=== PATIENT | female | born 1950 | race Caucasian/White ===

== ENCOUNTER → 2016-07-12 | Outpatient (CLI) | payer OTHER ==
[~2016-07-12] MED LIST: /AMLO25TA PO; AMLO5TAB2 PO; ASPI325T PO; JANU50TA4 PO; METF1000 PO; METO-207 PO; NEXI20CA PO; NEXI40GR PO; QUIN40TA4 PO; QUIN40TA5 PO; SIMV20TA2 PO; TYLE325T5 PO
[2016-07-12 08:31] LABS: ALBUMIN 4.1 GM/DL (3.2-5.2); ALBUMIN/GLOBULIN RATIO 1.37 (1.00-1.93); ALKALINE PHOSPHATASE 92 U/L (45-117); ALT/SGPT 63 U/L (12-78); ANION GAP 11 MEQ/L (8-16); AST/SGOT 32 U/L (15-37); BILIRUBIN,TOTAL 0.4 MG/DL (0.2-1.0); BLOOD UREA NITROGEN 16 MG/DL (7-18); CALCIUM LEVEL 8.5 MG/DL (8.8-10.2); CARBON DIOXIDE LEVEL 27 MEQ/L (21-32); CHLORIDE LEVEL 105 MEQ/L (98-107); CHOLESTEROL LEVEL 164 MG/DL (<200); CREATININE FOR GFR 0.61 MG/DL (0.55-1.02); GLOMERULAR FILTRATION RATE > 60.0 (>45); GLUCOSE, FASTING 147 MG/DL (80-110); POTASSIUM SERUM 4.4 MEQ/L (3.5-5.1); SODIUM LEVEL 143 MEQ/L (136-145); TOTAL PROTEIN 7.1 GM/DL (6.4-8.2); TRIGLYCERIDES LEVEL 191 MG/DL (<150)
== END ==
LOC: M LAB 07:23
PROVIDERS: ATTEND Internal Medicine
DX: E78.5 Hyperlipidemia, unspecified (principal); I10 Essential (primary) hypertension; I48.91 Unspecified atrial fibrillation; E11.9 Type 2 diabetes mellitus without complications

== ENCOUNTER → 2016-07-12 | Outpatient (CLI) | payer OTHER ==
[2016-07-12 08:40] LABS: MAGNESIUM LEVEL 1.8 MG/DL (1.8-2.4)
== END ==
LOC: M LAB 07:25
PROVIDERS: ATTEND Internal Medicine Cardiovascular Disease
DX: I48.91 Unspecified atrial fibrillation (principal)

== ENCOUNTER → 2016-11-08 | Outpatient (CLI) | payer OTHER ==
[~2016-11-08] MED LIST changes: -METF1000 PO; +METF10004 PO; -METO-207 PO; +METO1TAB7 PO; +QUIN1TAB15 PO; -QUIN40TA5 PO
[2016-11-08 12:51] LABS: MEAN CORPUSCULAR HEMOGLOBIN 31.2 pg (27.0-33.0); MEAN CORPUSCULAR HGB CONC 33.9 g/dl (32.0-36.5); MEAN CORPUSCULAR VOLUME 91.9 fl (80.0-96.0); RED CELL DISTRIBUTION WIDTH 12.2 % (11.5-14.5); WHITE BLOOD COUNT 6.9 K/mm3 (4.0-10.0)
[2016-11-08 12:52] LABS: ANION GAP 6 MEQ/L (8-16); BLOOD UREA NITROGEN 11 MG/DL (7-18); CALCIUM LEVEL 9.4 MG/DL (8.8-10.2); CARBON DIOXIDE LEVEL 29 MEQ/L (21-32); CHLORIDE LEVEL 106 MEQ/L (98-107); CREATININE FOR GFR 0.67 MG/DL (0.55-1.02); GLOMERULAR FILTRATION RATE > 60.0 (>45); GLUCOSE, FASTING 132 MG/DL (80-110); POTASSIUM SERUM 4.5 MEQ/L (3.5-5.1); SODIUM LEVEL 141 MEQ/L (136-145)
== END ==
LOC: M WUC 09:01
PROVIDERS: ATTEND Internal Medicine Cardiovascular Disease
DX: I48.91 Unspecified atrial fibrillation (principal)

== ENCOUNTER → 2017-01-20 | Outpatient (CLI) | payer OTHER ==
--- NOTE | 2017-01-22 17:48 | SLEEPCENT ---
DATE OF PROCEDURE: 01/20/2017 REFERRING PHYSICIAN: Cammy Espinoza Nocturnal polysomnography was performed for evaluation of sleep physiology in this patient with a history of excessive somnolence and nonrestorative sleep. 8 hours and 3 minutes of data were reviewed. There were 395 minutes of sleep identified. Sleep latency was prolonged at 52 minutes. Rapid eye movement (REM) latency was quite prolonged at 171 minutes. Indeed, REM sleep was not achieved until interventions were made. The patient's sleep architecture initially severely fragmented, improved after intervention. Overall sleep efficiency was 82.6%. EKG showed a sinus rhythm with an average heart rate of 75 beats per minute. Respiratory variability was seen with a rate of 65 to 82. EEG showed reasonably normal waveforms for awake and sleep. There were 102 respiratory events identified of 10 seconds in duration or greater for an apnea/hypopnea index of 15.5. The events were associated with oxygen desaturations into the 80s. Having clearly established the presence of obstructive sleep apnea syndrome early in the test, the study was stopped before midnight for the application of pressure therapy. The patient was fit with a ResMed AirFit F20 full face mask of medium size, 4 cm of water pressure were applied to the circuit and the lights were then extinguished. Throughout the remaining hours of testing, pressure titration was performed to an optimal pressure of +7 with which the patient's slept through REM without respiratory event or oxygen desaturation. Some limb activity identified early in the study resolved with the application of pressure therapy as well. IMPRESSION: Obstructive sleep apnea syndrome (G47.33). RECOMMENDATION: Nightly use of pressure therapy, 7 cm of water.
== END ==
LOC: M SLEEP 19:45
PROVIDERS: ATTEND Nurse Practitioner Adult Health
DX: G47.33 Obstructive sleep apnea (adult) (pediatric) (principal)

== ENCOUNTER → 2017-02-06 | Outpatient (REF) | payer OTHER ==
[2017-02-06 11:50] LABS: MEAN CORPUSCULAR HEMOGLOBIN 30.5 pg (27.0-33.0); MEAN CORPUSCULAR HGB CONC 32.9 g/dl (32.0-36.5); MEAN CORPUSCULAR VOLUME 92.7 fl (80.0-96.0); RED CELL DISTRIBUTION WIDTH 11.4 % (11.5-14.5)
[2017-02-06 12:18] LABS: ALBUMIN/GLOBULIN RATIO 1.25 (1.00-1.93); ALKALINE PHOSPHATASE 79 U/L (45-117); ALT/SGPT 49 U/L (12-78); ANION GAP 10 MEQ/L (8-16); AST/SGOT 21 U/L (15-37); BILIRUBIN,TOTAL 0.3 MG/DL (0.2-1.0); BLOOD UREA NITROGEN 14 MG/DL (7-18); CALCIUM LEVEL 8.9 MG/DL (8.8-10.2); CARBON DIOXIDE LEVEL 26 MEQ/L (21-32); CHLORIDE LEVEL 104 MEQ/L (98-107); CREATININE FOR GFR 0.53 MG/DL (0.55-1.02); GLOMERULAR FILTRATION RATE > 60.0 (>45); GLUCOSE, FASTING 131 MG/DL (80-110); POTASSIUM SERUM 4.4 MEQ/L (3.5-5.1); SODIUM LEVEL 140 MEQ/L (136-145); TOTAL PROTEIN 7.2 GM/DL (6.4-8.2)
== END ==
LOC: M LABDRAW1 10:02
PROVIDERS: ATTEND Orthopaedic Surgery
DX: M25.562 Pain in left knee (principal)

== ENCOUNTER → 2017-06-27 | Outpatient (CLI) | payer OTHER ==
[2017-06-27 07:39] LABS: HEMOGLOBIN 14.2 g/dl (12.0-16.0); MEAN CORPUSCULAR HEMOGLOBIN 30.2 pg (27.0-33.0); MEAN CORPUSCULAR VOLUME 91.5 fl (80.0-96.0); PLATELET COUNT, AUTOMATED 228 10^3/uL (150-450); RED CELL DISTRIBUTION WIDTH 11.7 % (11.5-14.5)
[2017-06-27 07:57] LABS: ALBUMIN 4.4 GM/DL (3.2-5.2); ALBUMIN/GLOBULIN RATIO 1.38 (1.00-1.93); ALKALINE PHOSPHATASE 92 U/L (45-117); ALT/SGPT 57 U/L (12-78); ANION GAP 8 MEQ/L (8-16); AST/SGOT 31 U/L (7-37); BILIRUBIN,TOTAL 0.4 MG/DL (0.2-1.0); BLOOD UREA NITROGEN 16 MG/DL (7-18); CALCIUM LEVEL 8.9 MG/DL (8.8-10.2); CARBON DIOXIDE LEVEL 27 MEQ/L (21-32); CHLORIDE LEVEL 107 MEQ/L (98-107); CREATININE FOR GFR 0.62 MG/DL (0.55-1.30); GLOMERULAR FILTRATION RATE > 60.0 (>45); GLUCOSE, FASTING 149 MG/DL (70-100); POTASSIUM SERUM 4.1 MEQ/L (3.5-5.1); SODIUM LEVEL 142 MEQ/L (136-145); TOTAL PROTEIN 7.6 GM/DL (6.4-8.2)
== END ==
LOC: M LAB 06:52
DX: Z01.812 Encounter for preprocedural laboratory examination (principal)
CPT/HCPCS: 80053

== ENCOUNTER 2017-11-28 11:31 | Inpatient (IN) | payer MEDICARE, OTHER ==
[2017-11-28 12:29] LABS: BASO % 0.1 % (0.0-1.0); HEMATOCRIT 35.1 % (36.0-47.0); HEMOGLOBIN 11.9 g/dl (12.0-15.5); IMMATURE GRANULOCYTE % 0.6 % (0-3.0); LYMPH # 2.6 10^3/uL (1.5-4.5); LYMPH % 13.3 % (24.0-44.0); MEAN CORPUSCULAR HGB CONC 33.9 g/dl (32.0-36.5); MEAN CORPUSCULAR VOLUME 91.4 fl (80.0-96.0); MONO # 1.2 10^3/uL (0.0-0.8); MONO % 6.3 % (0.0-5.0); NEUTROPHILS # 15.4 10^3/uL (1.8-7.7); NEUTROPHILS % 79.7 % (36.0-66.0); PLATELET COUNT, AUTOMATED 204 10^3/uL (150-450); RED BLOOD COUNT 3.84 10^6/uL (4.00-5.40); RED CELL DISTRIBUTION WIDTH 11.5 % (11.5-14.5); WHITE BLOOD COUNT 19.3 10^3/uL (4.0-10.0)
[2017-11-28 13:14] LABS: ALBUMIN 3.7 GM/DL (3.2-5.2); ALBUMIN/GLOBULIN RATIO 1.09 (1.00-1.93); ALKALINE PHOSPHATASE 71 U/L (45-117); ALT/SGPT 32 U/L (12-78); ANION GAP 13 MEQ/L (8-16); AST/SGOT 13 U/L (7-37); BILIRUBIN,DIRECT 0.2 MG/DL (0.0-0.2); BILIRUBIN,TOTAL 0.6 MG/DL (0.2-1.0); BLOOD UREA NITROGEN 32 MG/DL (7-18); CALCIUM LEVEL 8.6 MG/DL (8.8-10.2); CARBON DIOXIDE LEVEL 22 MEQ/L (21-32); CHLORIDE LEVEL 97 MEQ/L (98-107); CPK CREATINE PHOSPHOKINASE 65 U/L (26-192); GLOMERULAR FILTRATION RATE 30.1 (>45); GLUCOSE, FASTING 204 MG/DL (70-100); LIPASE 216 U/L (73-393); POTASSIUM SERUM 3.7 MEQ/L (3.5-5.1); SODIUM LEVEL 132 MEQ/L (136-145); TOTAL PROTEIN 7.1 GM/DL (6.4-8.2); TROPONIN I < 0.02 NG/ML (< 0.10)
[2017-11-28 13:15] LABS: CK-MB VALUE MASS < 1.0 NG/ML (<3.6); MB/CK RELATIVE INDEX 1.53 (< OR =4)
[2017-11-28] MEDS: NS 1,000 ML IV ×3 (13:15→18:48)
[2017-11-28] MEDS: ACETAMINOPHEN TAB 650MG DOSE (2X325MG) PO ×2 (17:00→20:35)
[2017-11-28 17:09] LABS: KETONE, URINE AUTO RFX 1+ mg/dL (NEGATIVE); LEUKOCYTE ESTERASE UR AUTO RFX TRACE (NEGATIVE); MUCUS, URINE RFX SMALL (NEGATIVE); NITRITE, URINE AUTO RFX NEGATIVE (NEGATIVE); RBC, URINE AUTO RFX 5 /HPF (0-3); SPECIFIC GRAVITY UR AUTO RFX 1.009 (1.002-1.035); SQUAM EPITHELIAL CELL UR AURFX 2 /HPF (0-6); WBC, URINE AUTO RFX 5 /HPF (0-3)
[2017-11-28] MEDS ORDERED: GLUCOSE 4 GM CHEW TABLET PO (17:30)
[2017-11-28] MEDS ORDERED: GLUCAGON FOR INJ 1 MG VIAL (J1610) SC (17:30)
[2017-11-28] MEDS ORDERED: DEXTROSE 50% 50 ML SYRINGE IV (17:30)
[2017-11-28] MEDS ORDERED: ONDANSETRON 4MG/2ML VIAL (J2405) IV (17:45)
[2017-11-28] MEDS ORDERED: PIPERACILLIN/TAZOBACTAM SOD 3.375 GM in D5W MINI-BAG PLUS 50 ML IV (18:00)
[2017-11-28 18:42] LABS: BEDSIDE GLUCOSE 208 MG/DL (80-115)
[2017-11-28] MEDS: HumaLOG INSULIN (NovoLOG) PER UNIT SC ×2 (18:47→20:31)
[2017-11-28] MEDS: POTASSIUM CHLORIDE 10 MEQ SR TABLET PO (18:47)
[2017-11-28 19:47] LABS: BEDSIDE GLUCOSE 233 MG/DL (80-115)
[2017-11-28 20:02] LABS: LACTIC ACID SEPSIS PROTOCOL 1.5 MMOL/L (0.4-2.0)
[2017-11-28 20:03] LABS: CPK CREATINE PHOSPHOKINASE 64 U/L (26-192); TROPONIN I < 0.02 NG/ML (< 0.10)
[2017-11-28 20:07] LABS: CK-MB VALUE MASS < 1.0 NG/ML (<3.6); MB/CK RELATIVE INDEX 1.56 (< OR =4)
[2017-11-28] MEDS: PIPERACILLIN/TAZOBACTAM SOD 3.375 GM in D5W MINI-BAG PLUS 50 ML IV (20:29)
[2017-11-28] MEDS: APIXABAN 5 MG TAB (ELIQUIS) PO (20:30)
[2017-11-28] MEDS: METOPROLOL TART 50 MG TAB PO (20:30)
[2017-11-28] MEDS: DOCUSATE SODIUM 100 MG CAP PO (20:31)
[2017-11-28 21:34] LABS: OSMOLALITY URINE 331 MOSM/KG (500-800)
[2017-11-28 21:42] LABS: CHLORIDE,RANDOM URINE 48 MEQ/L; CREATININE,RANDOM URINE 63.4 MG/DL; POTASSIUM RANDOM URINE 21.7 MEQ/L; SODIUM,RANDOM URINE 45 MEQ/L; TOTAL PROTEIN,RANDOM URINE 23.8 MG/DL (0.0-12.0)
[2017-11-29] MEDS: PIPERACILLIN/TAZOBACTAM SOD 3.375 GM in D5W MINI-BAG PLUS 50 ML IV ×4 (02:27→20:37)
[2017-11-29] MEDS: NS 1,000 ML IV (03:38)
[2017-11-29] MEDS: ACETAMINOPHEN TAB 650MG DOSE (2X325MG) PO (03:49)
[2017-11-29 06:03] LABS: HEMATOCRIT 30.6 % (36.0-47.0); HEMOGLOBIN 10.3 g/dl (12.0-15.5); MEAN CORPUSCULAR HEMOGLOBIN 30.9 pg (27.0-33.0); MEAN CORPUSCULAR HGB CONC 33.7 g/dl (32.0-36.5); MEAN CORPUSCULAR VOLUME 91.9 fl (80.0-96.0); PLATELET COUNT, AUTOMATED 153 10^3/uL (150-450); RED BLOOD COUNT 3.33 10^6/uL (4.00-5.40); RED CELL DISTRIBUTION WIDTH 11.6 % (11.5-14.5); WHITE BLOOD COUNT 10.6 10^3/uL (4.0-10.0)
[2017-11-29 06:24] LABS: ALKALINE PHOSPHATASE 58 U/L (45-117); ALT/SGPT 24 U/L (12-78); ANION GAP 11 MEQ/L (8-16); AST/SGOT 11 U/L (7-37); BILIRUBIN,TOTAL 0.5 MG/DL (0.2-1.0); BLOOD UREA NITROGEN 20 MG/DL (7-18); CALCIUM LEVEL 7.8 MG/DL (8.8-10.2); CARBON DIOXIDE LEVEL 23 MEQ/L (21-32); CHLORIDE LEVEL 105 MEQ/L (98-107); CREATININE FOR GFR 1.02 MG/DL (0.55-1.30); GLOMERULAR FILTRATION RATE 57.9 (>45); GLUCOSE, FASTING 153 MG/DL (70-100); POTASSIUM SERUM 3.2 MEQ/L (3.5-5.1); SODIUM LEVEL 139 MEQ/L (136-145)
[2017-11-29 06:25] LABS: ALBUMIN 2.8 GM/DL (3.2-5.2); ALBUMIN/GLOBULIN RATIO 0.78 (1.00-1.93); MAGNESIUM LEVEL 1.8 MG/DL (1.8-2.4); TOTAL PROTEIN 6.4 GM/DL (6.4-8.2)
[2017-11-29] MEDS: ASCORBIC ACID 500 MG TAB PO (08:01)
[2017-11-29] MEDS: VITAMIN D (CHOLECALCIFEROL) 400 INTERNATIONAL UNITS TAB PO (08:01)
[2017-11-29] MEDS: APIXABAN 5 MG TAB (ELIQUIS) PO ×2 (08:01→20:52)
[2017-11-29] MEDS: ATORVASTATIN 20 MG TAB PO (08:02)
[2017-11-29] MEDS: DOCUSATE SODIUM 100 MG CAP PO ×2 (08:02→20:17)
[2017-11-29] MEDS: VITAMIN E 200 INTERNATIONAL UNITS CAP PO (08:02)
[2017-11-29] MEDS: HumaLOG INSULIN (NovoLOG) PER UNIT SC ×4 (08:02→20:41)
[2017-11-29] MEDS: METOPROLOL TART 50 MG TAB PO ×2 (09:00→20:45)
[2017-11-29 11:51] LABS: BEDSIDE GLUCOSE 162 MG/DL (80-115)
[2017-11-29] MEDS: POTASSIUM CHLORIDE 10 MEQ SR TABLET PO (12:00)
[2017-11-29 17:31] LABS: BEDSIDE GLUCOSE 185 MG/DL (80-115)
[2017-11-29 20:52] LABS: BEDSIDE GLUCOSE 251 MG/DL (80-115)
[2017-11-30] MEDS: PIPERACILLIN/TAZOBACTAM SOD 3.375 GM in D5W MINI-BAG PLUS 50 ML IV (01:40)
[2017-11-30 05:46] LABS: HEMATOCRIT 31.8 % (36.0-47.0); HEMOGLOBIN 10.9 g/dl (12.0-15.5); MEAN CORPUSCULAR HEMOGLOBIN 31.4 pg (27.0-33.0); MEAN CORPUSCULAR HGB CONC 34.3 g/dl (32.0-36.5); MEAN CORPUSCULAR VOLUME 91.6 fl (80.0-96.0); PLATELET COUNT, AUTOMATED 167 10^3/uL (150-450); RED BLOOD COUNT 3.47 10^6/uL (4.00-5.40); RED CELL DISTRIBUTION WIDTH 11.6 % (11.5-14.5); WHITE BLOOD COUNT 6.2 10^3/uL (4.0-10.0)
[2017-11-30 06:05] LABS: ALBUMIN/GLOBULIN RATIO 0.75 (1.00-1.93); ALKALINE PHOSPHATASE 63 U/L (45-117); ALT/SGPT 30 U/L (12-78); ANION GAP 9 MEQ/L (8-16); AST/SGOT 17 U/L (7-37); BILIRUBIN,TOTAL 0.4 MG/DL (0.2-1.0); BLOOD UREA NITROGEN 12 MG/DL (7-18); CALCIUM LEVEL 8.7 MG/DL (8.8-10.2); CARBON DIOXIDE LEVEL 25 MEQ/L (21-32); CHLORIDE LEVEL 106 MEQ/L (98-107); CREATININE FOR GFR 0.86 MG/DL (0.55-1.30); GLOMERULAR FILTRATION RATE > 60.0 (>45); GLUCOSE, FASTING 167 MG/DL (70-100); MAGNESIUM LEVEL 1.9 MG/DL (1.8-2.4); POTASSIUM SERUM 3.5 MEQ/L (3.5-5.1); SODIUM LEVEL 140 MEQ/L (136-145)
[2017-11-30] MEDS: ATORVASTATIN 20 MG TAB PO (09:04)
[2017-11-30] MEDS: LACTOBACILLUS ACIDOPHILUS CAP (BACID) PO (09:04)
[2017-11-30] MEDS: DOCUSATE SODIUM 100 MG CAP PO (09:04)
[2017-11-30] MEDS: HumaLOG INSULIN (NovoLOG) PER UNIT SC (09:04)
[2017-11-30] MEDS: POTASSIUM CHLORIDE 10 MEQ SR TABLET PO (09:05)
[2017-11-30] MEDS: VITAMIN D (CHOLECALCIFEROL) 400 INTERNATIONAL UNITS TAB PO (09:05)
[2017-11-30] MEDS: LevoFLOXacin 750 MG TABLET PO (09:05)
[2017-11-30] MEDS: APIXABAN 5 MG TAB (ELIQUIS) PO (09:05)
[2017-11-30] MEDS: VITAMIN E 200 INTERNATIONAL UNITS CAP PO (09:06)
[2017-11-30] MEDS: ASCORBIC ACID 500 MG TAB PO (09:06)
[2017-11-30] MEDS: METOPROLOL TART 50 MG TAB PO (09:08)
== END 2017-11-30 11:25 | disposition home or self-care (01) | DRG 872 ==
LOC: M ED 11:31 → M ED INP 17:33 → M PCU 18:25
DX: A41.9 Sepsis, unspecified organism (principal); N17.9 Acute kidney failure, unspecified; N39.0 Urinary tract infection, site not specified; E11.9 Type 2 diabetes mellitus without complications; I10 Essential (primary) hypertension; I48.91 Unspecified atrial fibrillation; B96.89 Other specified bacterial agents as the cause of diseases classified elsewhere; G47.33 Obstructive sleep apnea (adult) (pediatric); Z88.2 Allergy status to sulfonamides; Z90.49 Acquired absence of other specified parts of digestive tract; Z79.01 Long term (current) use of anticoagulants; Z79.84 Long term (current) use of oral hypoglycemic drugs; Z79.899 Other long term (current) drug therapy; E66.9 Obesity, unspecified; E78.5 Hyperlipidemia, unspecified; Z68.30 Body mass index [BMI] 30.0-30.9, adult

== ENCOUNTER → 2018-02-04 | Outpatient (CLI) | payer MEDICARE ==
[2018-02-04 12:50] LABS: BASO % 0.6 % (0.0-1.0); EOS # 0.1 10^3/uL (0.0-0.50); EOS % 1.5 % (0.0-3.0); HEMATOCRIT 36.5 % (36.0-47.0); IMMATURE GRANULOCYTE % 0.3 % (0-3.0); LYMPH % 44.3 % (24.0-44.0); MEAN CORPUSCULAR HEMOGLOBIN 30.5 pg (27.0-33.0); MEAN CORPUSCULAR HGB CONC 32.9 g/dl (32.0-36.5); MEAN CORPUSCULAR VOLUME 92.6 fl (80.0-96.0); MONO # 0.4 10^3/uL (0.0-0.8); NEUTROPHILS # 3.2 10^3/uL (1.8-7.7); NEUTROPHILS % 47.3 % (36.0-66.0); PLATELET COUNT, AUTOMATED 239 10^3/uL (150-450); RED BLOOD COUNT 3.94 10^6/uL (4.00-5.40); RED CELL DISTRIBUTION WIDTH 11.8 % (11.5-14.5); WHITE BLOOD COUNT 6.8 10^3/uL (4.0-10.0)
[2018-02-04 13:19] LABS: ANION GAP 9 MEQ/L (8-16); BLOOD UREA NITROGEN 13 MG/DL (7-18); CALCIUM LEVEL 8.7 MG/DL (8.8-10.2); CARBON DIOXIDE LEVEL 27 MEQ/L (21-32); CHLORIDE LEVEL 106 MEQ/L (98-107); CREATININE FOR GFR 0.84 MG/DL (0.55-1.30); GLOMERULAR FILTRATION RATE > 60.0 (>45); GLUCOSE, FASTING 201 MG/DL (70-100); POTASSIUM SERUM 4.1 MEQ/L (3.5-5.1); SODIUM LEVEL 142 MEQ/L (136-145)
== END ==
LOC: M WUC 09:01
DX: I48.0 Paroxysmal atrial fibrillation (principal)
CPT/HCPCS: 80048

== ENCOUNTER → 2018-03-26 | Outpatient (CLI) | payer MEDICARE ==
[2018-03-26 10:10] LABS: ESTIMATED AVERAGE GLUCOSE 163 MG/DL (60-110); HEMOGLOBIN A1c 7.3 %
[2018-03-26 10:26] LABS: ALBUMIN 4.2 GM/DL (3.2-5.2); ALBUMIN/GLOBULIN RATIO 1.45 (1.00-1.93); ALKALINE PHOSPHATASE 82 U/L (45-117); ALT/SGPT 45 U/L (12-78); ANION GAP 7 MEQ/L (8-16); AST/SGOT 23 U/L (7-37); BILIRUBIN,TOTAL 0.4 MG/DL (0.2-1.0); BLOOD UREA NITROGEN 17 MG/DL (7-18); CARBON DIOXIDE LEVEL 26 MEQ/L (21-32); CHLORIDE LEVEL 109 MEQ/L (98-107); CHOLESTEROL LEVEL 157 MG/DL (<200); CHOLESTEROL RISK RATIO 3.488 (<5); CREATININE FOR GFR 0.78 MG/DL (0.55-1.30); GLOMERULAR FILTRATION RATE > 60.0 (>45); GLUCOSE, FASTING 141 MG/DL (70-100); HDL CHOLESTEROL 45 MG/DL (>40); LDL CHOLESTEROL 74 MG/DL (<100); NON-HDL-C 112 MG/DL; POTASSIUM SERUM 4.2 MEQ/L (3.5-5.1); SODIUM LEVEL 142 MEQ/L (136-145); TOTAL PROTEIN 7.1 GM/DL (6.4-8.2); TRIGLYCERIDES LEVEL 191 MG/DL (<150)
== END ==
LOC: M WUC 08:11
DX: I10 Essential (primary) hypertension (principal); E11.9 Type 2 diabetes mellitus without complications; E78.5 Hyperlipidemia, unspecified
CPT/HCPCS: 80053

== ENCOUNTER → 2018-06-20 | Outpatient (CLI) | payer MEDICARE ==
[~2018-06-20] MED LIST changes: -AMLO5TAB2 PO; +AMLO5TAB6 PO; +ATOR1TAB21 PO; +BACITAB PO; +CHLO125TA; +CHLO25TA PO; +ELIQ5TAB PO; +GLUCTAB6 PO; +LEVA750T7 PO; +METO100T5 PO; -QUIN1TAB15 PO; +QUIN1TAB4 PO; +QUIN40TA26 PO; +VICT18IN SC; +VITA400T PO; +VITA500C24 PO; +VITAE20CA PO
[2018-06-20 14:08] LABS: HEMATOCRIT 39.2 % (36.0-47.0); HEMOGLOBIN 12.5 g/dl (12.0-15.5); MEAN CORPUSCULAR HEMOGLOBIN 30.3 pg (27.0-33.0); MEAN CORPUSCULAR HGB CONC 31.9 g/dl (32.0-36.5); MEAN CORPUSCULAR VOLUME 95.1 fl (80.0-96.0); PLATELET COUNT, AUTOMATED 229 10^3/uL (150-450); RED BLOOD COUNT 4.12 10^6/uL (4.00-5.40); WHITE BLOOD COUNT 7.4 10^3/uL (4.0-10.0)
[2018-06-20 14:10] LABS: BLOOD UREA NITROGEN 16 MG/DL (7-18); CALCIUM LEVEL 9.1 MG/DL (8.8-10.2); CARBON DIOXIDE LEVEL 28 MEQ/L (21-32); CHLORIDE LEVEL 107 MEQ/L (98-107); CREATININE FOR GFR 0.82 MG/DL (0.55-1.30); GLOMERULAR FILTRATION RATE > 60.0 (>45); GLUCOSE, FASTING 156 MG/DL (70-100); POTASSIUM SERUM 4.5 MEQ/L (3.5-5.1); SODIUM LEVEL 141 MEQ/L (136-145)
== END ==
LOC: M WUC 11:31
PROVIDERS: ATTEND Internal Medicine Cardiovascular Disease
DX: I48.0 Paroxysmal atrial fibrillation (principal)

== ENCOUNTER → 2018-07-21 | Outpatient (REF) | payer MEDICARE | LOC: M LAB REF 13:10 | PROVIDERS: ATTEND Internal Medicine | DX: R19.7 Diarrhea, unspecified (principal) ==

== ENCOUNTER 2019-01-15 11:46 | Emergency (ER) | payer MEDICARE ==
[~2019-01-15] VITALS: Ht 167.6 cm; Wt 83.4 kg
[~2019-01-15 11:46] MED LIST changes: -/AMLO25TA PO; +ASPI-1 PO; -ASPI325T PO; +NORV2TAB PO
[2019-01-15 12:48] LABS: BASO % 0.3 % (0.0-1.0); EOS # 0.1 10^3/uL (0.0-0.5); EOS % 0.8 % (0.0-3.0); HEMATOCRIT 46.2 % (36.0-47.0); HEMOGLOBIN 14.9 g/dl (12.0-15.5); LYMPH # 2.5 10^3/uL (1.5-5.0); LYMPH % 21.2 % (24.0-44.0); MEAN CORPUSCULAR HEMOGLOBIN 30.8 pg (27.0-33.0); MEAN CORPUSCULAR HGB CONC 32.3 g/dl (32.0-36.5); MEAN CORPUSCULAR VOLUME 95.5 fl (80.0-96.0); MONO # 0.9 10^3/uL (0.0-0.8); NEUTROPHILS % 69.2 % (36.0-66.0); PLATELET COUNT, AUTOMATED 216 10^3/uL (150-450); RED BLOOD COUNT 4.84 10^6/uL (4.00-5.40); WHITE BLOOD COUNT 11.5 10^3/uL (4.0-10.0)
[2019-01-15 13:04] LABS: ALBUMIN 3.9 GM/DL (3.2-5.2); ALT/SGPT 21 U/L (12-78); BILIRUBIN,DIRECT 0.1 MG/DL (0.0-0.2); BILIRUBIN,TOTAL 0.5 MG/DL (0.2-1.0); BLOOD UREA NITROGEN 16 MG/DL (7-18); CALCIUM LEVEL 9.7 MG/DL (8.8-10.2); CARBON DIOXIDE LEVEL 23 MEQ/L (21-32); CHLORIDE LEVEL 106 MEQ/L (98-107); CREATININE FOR GFR 0.85 MG/DL (0.55-1.30); GLOMERULAR FILTRATION RATE > 60.0 (>45); GLUCOSE, FASTING 172 MG/DL (70-100); LIPASE 162 U/L (73-393); POTASSIUM SERUM 4.3 MEQ/L (3.5-5.1); SODIUM LEVEL 139 MEQ/L (136-145); TOTAL PROTEIN 7.4 GM/DL (6.4-8.2)
[2019-01-15] MEDS ORDERED: ECOT81TA5 PO (14:57)
[2019-01-15] MEDS ORDERED: FARX1TAB3 PO (14:57)
[2019-01-15] MEDS ORDERED: GI COCKTAIL 50ML BTL(HYOSCYAMINE/MAALOX/LIDOCAINE VISCOUS)(1:3:1) PO ONE (16:15)
[2019-01-15] MEDS ORDERED: FLAG500T PO (17:14)
[2019-01-15] MEDS ORDERED: CIPR-249 PO (17:14)
[2019-01-15] MEDS ORDERED: OMEP40CA2 PO (17:14)
[2019-01-15 17:25] VITALS: BP 133/68
== END 2019-01-15 17:24 | disposition home or self-care (01) ==
LOC: M ED 11:46
DX: N39.0 Urinary tract infection, site not specified (principal); B96.89 Other specified bacterial agents as the cause of diseases classified elsewhere; K29.70 Gastritis, unspecified, without bleeding; E11.9 Type 2 diabetes mellitus without complications; M51.27 Other intervertebral disc displacement, lumbosacral region; G47.30 Sleep apnea, unspecified; Z79.82 Long term (current) use of aspirin; Z79.84 Long term (current) use of oral hypoglycemic drugs; Z79.899 Other long term (current) drug therapy; Z90.49 Acquired absence of other specified parts of digestive tract; Z87.19 Personal history of other diseases of the digestive system; Z88.2 Allergy status to sulfonamides

== ENCOUNTER → 2019-01-19 | Outpatient (CLI) | payer MEDICARE ==
[~2019-01-19] MED LIST changes: +CIPR-249 PO; +DICY10CA13 PO; +ECOT81TA5 PO; +FARX1TAB3 PO; +FLAG500T PO; +METO200T28 PO; +NAPR-837 PO; +OMEP40CA97 PO; +REGL10TA6 PO; -SIMV20TA2 PO; +SIMV20TA22 PO
--- NOTE | 2019-01-19 10:31 | REPMRS ---
Patient History The patient states she has not had a clinical breast exam in over a year. No known family history of cancer. No Hormone Replacement Therapy 3D TOMOSYNTHESIS WAS PERFORMED. [facility] lifetime risk for breast cancer is 6.3%. Digital Woman Screen Mammo: January 19, 2019 - Exam #: [id number] Bilateral CC and MLO view(s) were taken. Technologist: Milvia Gaston, Technologist Prior study comparison: 2017, bilateral digital mammo screening bilat, performed at [facility]. FINDINGS: The breast tissue is heterogeneously dense. This may lower the sensitivity of mammography. There has been no change in the appearance of the mammogram from the prior studies. There is a moderate amount of residual fibroglandular tissue which is fairly symmetric. There is no interval development of dominant mass, areas of architectural distortion, or clustered microcalcification typical of malignancy. Assessment: BI-RADS/ACR category 1 mammogram. Negative Mammogram. Recommendation Routine screening mammogram in 1 year (for women over age 40). This mammogram was interpreted with the aid of an FDA-approved computer-aided dectection system. Electronically Signed By: Lencho Scruggs MD 01/19/19 2010
== END ==
LOC: M WHC 08:24
PROVIDERS: ATTEND Internal Medicine
DX: Z12.31 Encounter for screening mammogram for malignant neoplasm of breast (principal)

== ENCOUNTER 2019-01-26 13:28 | Emergency (ER) | payer MEDICARE ==
[~2019-01-26] VITALS: Ht 167.6 cm; Wt 84.6 kg
[~2019-01-26 13:28] MED LIST changes: -DICY10CA13 PO; -METO200T28 PO; -NAPR-837 PO; +OMEP40CA2 PO; -OMEP40CA97 PO; -REGL10TA6 PO; +SIMV20TA2 PO; -SIMV20TA22 PO
[2019-01-26] MEDS ORDERED: METO200T28 PO (13:46)
[2019-01-26 14:38] LABS: BASO # 0.1 10^3/uL (0.0-0.2); BASO % 0.4 % (0.0-1.0); EOS % 0.2 % (0.0-3.0); HEMATOCRIT 49.9 % (36.0-47.0); HEMOGLOBIN 16.5 g/dl (12.0-15.5); LYMPH # 2.3 10^3/uL (1.5-5.0); LYMPH % 14.2 % (24.0-44.0); MEAN CORPUSCULAR HEMOGLOBIN 29.5 pg (27.0-33.0); MEAN CORPUSCULAR HGB CONC 33.1 g/dl (32.0-36.5); MEAN CORPUSCULAR VOLUME 89.3 fl (80.0-96.0); MONO # 0.9 10^3/uL (0.0-0.8); MONO % 5.7 % (0.0-5.0); NEUTROPHILS % 79.1 % (36.0-66.0); PLATELET COUNT, AUTOMATED 412 10^3/uL (150-450); RED BLOOD COUNT 5.59 10^6/uL (4.00-5.40); WHITE BLOOD COUNT 16.4 10^3/uL (4.0-10.0)
[2019-01-26 15:03] LABS: ALT/SGPT 33 U/L (12-78); BILIRUBIN,DIRECT < 0.1 MG/DL (0.0-0.2); BILIRUBIN,TOTAL 0.4 MG/DL (0.2-1.0); BLOOD UREA NITROGEN 18 MG/DL (7-18); CALCIUM LEVEL 10.6 MG/DL (8.8-10.2); CARBON DIOXIDE LEVEL 20 MEQ/L (21-32); CHLORIDE LEVEL 104 MEQ/L (98-107); CREATININE FOR GFR 0.93 MG/DL (0.55-1.30); GLOMERULAR FILTRATION RATE > 60.0 (>45); GLUCOSE, FASTING 203 MG/DL (70-100); POTASSIUM SERUM 4.4 MEQ/L (3.5-5.1); SODIUM LEVEL 137 MEQ/L (136-145)
[2019-01-26 15:04] LABS: ALBUMIN 4.4 GM/DL (3.2-5.2); LIPASE 243 U/L (73-393); TOTAL PROTEIN 8.5 GM/DL (6.4-8.2)
[2019-01-26] MEDS ORDERED: NS 1,000 ML IV ONE (15:45)
[2019-01-26] MEDS ORDERED: GI COCKTAIL 50ML BTL(HYOSCYAMINE/MAALOX/LIDOCAINE VISCOUS)(1:3:1) PO ONE (15:45)
[2019-01-26] MEDS ORDERED: DICYCLOMINE 10 MG CAP PO ONE (15:45)
[2019-01-26] MEDS ORDERED: ISOVUE-370 76% 100ML VIAL (Q9967) As Ordered ONE (16:09)
--- NOTE | 2019-01-26 18:10 | REP ---
CT ABDOMEN AND PELVIS WITH IV CONTRAST: TECHNIQUE: Axial contrast enhanced images from the lung bases to the pubic symphysis using 100 mL Isovue 370 intravenous contrast material with multiplanar reformations. Visualized lung bases demonstrate minor fibro atelectatic changes. There is diffuse fatty infiltration of the liver. The patient has had a prior cholecystectomy. There is expected prominence of the common bile duct. The spleen is normal in size with no intrinsic abnormality. The adrenals and pancreas are normal. The kidneys are unremarkable with no hydronephrosis. There is no abdominal aortic aneurysm. There is no adenopathy. There is no free air. There is very mild scattered free fluid. There is moderate diffuse distension of the small bowel with air and fluid with mild scattered mucosal prominence. Distal ileum is relatively collapsed. There is mild to moderate distension of portions of the colon with air, fluid and fecal material. Scattered diverticula are seen of the sigmoid and left colon. The diffusely dilated small bowel may indicate a diffuse small bowel enteritis and generalized ileus. I can not exclude less likely possibility of partial small bowel obstruction distally. No pelvic mass is seen. Urinary bladder is not well distended and not well evaluated. IMPRESSION: Diffuse moderate distension of small bowel with fluid. Distal ileum is relatively collapsed. Portions of the colon are distended with fluid. Findings may represent a diffuse enteritis and ileus. Less likely there could be a partial obstruction in the region of the distal ileum. There is mild scattered free fluid with no free air. Status-post cholecystectomy. Sigmoid and left colonic diverticulosis without evidence of acute diverticulitis. Electronically Signed by Lencho Scruggs MD 01/27/2019 10:04 A
[2019-01-26] MEDS ORDERED: KETOROLAC 30 MG/ML VIAL (J1885) IV ONE (18:45)
[2019-01-26] MEDS ORDERED: REGL10TA6 PO (19:21)
[2019-01-26] MEDS ORDERED: DICY10CA13 PO (19:21)
[2019-01-26 19:29] VITALS: BP 112/65
[2019-01-26] MEDS ORDERED: NAPR-837 PO (19:31)
== END 2019-01-26 19:36 | disposition home or self-care (01) ==
LOC: M ED 13:28
DX: K52.9 Noninfective gastroenteritis and colitis, unspecified (principal); K57.30 Diverticulosis of large intestine without perforation or abscess without bleeding; I10 Essential (primary) hypertension; E11.9 Type 2 diabetes mellitus without complications; E78.5 Hyperlipidemia, unspecified; K21.9 Gastro-esophageal reflux disease without esophagitis; I25.2 Old myocardial infarction; Z88.2 Allergy status to sulfonamides; Z79.84 Long term (current) use of oral hypoglycemic drugs; Z79.82 Long term (current) use of aspirin; Z79.899 Other long term (current) drug therapy
CPT/HCPCS: 74177; 80048; 80076; 81001; 83690; 85025; 87507; 96361; 96374; 99284; J1885; Q9967

== ENCOUNTER → 2020-02-10 | Outpatient (CLI) | payer MEDICARE ==
[~2020-02-10] MED LIST changes: +AMLO1TAB24 PO; -AMLO5TAB6 PO; +DICY10CA13 PO; +METO200T28 PO; +NAPR-837 PO; -OMEP40CA2 PO; +OMEP40CA97 PO; +REGL10TA6 PO; -SIMV20TA2 PO; +SIMV20TA22 PO
[2020-02-10 10:02] LABS: HEMATOCRIT 43.2 % (36.0-47.0); HEMOGLOBIN 13.7 g/dl (12.0-15.5); MEAN CORPUSCULAR HEMOGLOBIN 30.4 pg (27.0-33.0); MEAN CORPUSCULAR HGB CONC 31.7 g/dl (32.0-36.5); MEAN CORPUSCULAR VOLUME 95.8 fl (80.0-96.0); PLATELET COUNT, AUTOMATED 232 10^3/uL (150-450); RED BLOOD COUNT 4.51 10^6/uL (4.00-5.40); WHITE BLOOD COUNT 7.3 10^3/uL (4.0-10.0)
[2020-02-10 10:11] LABS: INR 0.88; PROTHROMBIN TIME 12.1 SECONDS (12.5-14.3)
[2020-02-10 10:12] LABS: PARTIAL THROMBOPLASTIN TIME 27.8 SECONDS (24.2-38.5)
[2020-02-10 11:09] LABS: ALBUMIN 3.7 GM/DL (3.2-5.2); ALT/SGPT 28 U/L (12-78); BILIRUBIN,TOTAL 0.4 MG/DL (0.2-1.0); BLOOD UREA NITROGEN 17 MG/DL (7-18); CALCIUM LEVEL 9.5 MG/DL (8.8-10.2); CARBON DIOXIDE LEVEL 26 MEQ/L (21-32); CHLORIDE LEVEL 107 MEQ/L (98-107); GLOMERULAR FILTRATION RATE > 60.0 (>45); GLUCOSE, FASTING 270 MG/DL (70-100); SODIUM LEVEL 140 MEQ/L (136-145); TOTAL PROTEIN 6.9 GM/DL (6.4-8.2)
[2020-02-10 12:22] LABS: HEMOGLOBIN A1c 7.3 %
== END ==
LOC: M WUC 08:16
DX: M17.11 Unilateral primary osteoarthritis, right knee (principal); R79.1 Abnormal coagulation profile; Z79.899 Other long term (current) drug therapy

== ENCOUNTER 2020-03-11 22:56 | Inpatient (IN) | payer MEDICARE ==
[~2020-03-11] VITALS: Ht 167.6 cm; Wt 86.4 kg
[2020-03-11] MEDS ORDERED: OXYC10TA12 PO (23:10)
[2020-03-11] MEDS ORDERED: CELE1CAP9 PO (23:10)
[2020-03-11] MEDS ORDERED: TRAM50TA2 PO (23:10)
[2020-03-11] MEDS ORDERED: ONDA-83 PO (23:10)
[2020-03-12 00:45] LABS: INR 1.07; PROTHROMBIN TIME 14.1 SECONDS (12.5-14.3)
[2020-03-12 00:46] LABS: PARTIAL THROMBOPLASTIN TIME 22.4 SECONDS (24.2-38.5)
[2020-03-12 00:47] LABS: HEMATOCRIT 39.9 % (36.0-47.0); HEMOGLOBIN 12.7 g/dl (12.0-15.5); MEAN CORPUSCULAR HGB CONC 31.8 g/dl (32.0-36.5); MEAN CORPUSCULAR VOLUME 94.3 fl (80.0-96.0); PLATELET COUNT, AUTOMATED 245 10^3/uL (150-450); RED BLOOD COUNT 4.23 10^6/uL (4.00-5.40); WHITE BLOOD COUNT 6.3 10^3/uL (4.0-10.0)
[2020-03-12 00:56] LABS: ALBUMIN 3.4 GM/DL (3.2-5.2); ALT/SGPT 72 U/L (12-78); AMYLASE 28 U/L (25-115); BILIRUBIN,DIRECT 0.3 MG/DL (0.0-0.2); BILIRUBIN,TOTAL 0.9 MG/DL (0.2-1.0); CK-MB VALUE MASS 2.9 NG/ML (<3.6); CPK CREATINE PHOSPHOKINASE 146 U/L (26-192); LIPASE 65 U/L (73-393); MB/CK RELATIVE INDEX 1.99 (< OR =4); TOTAL PROTEIN 6.9 GM/DL (6.4-8.2); TROPONIN I < 0.02 NG/ML (< 0.10)
[2020-03-12] MEDS ORDERED: ISOVUE-370 76% 100ML VIAL As Ordered ONE (00:59)
[2020-03-12] MEDS ORDERED: MORPHINE 2 MG/ML 1ML VIAL (J2270) IV PRN ×3 (01:00→03:30)
[2020-03-12] MEDS ORDERED: NS 1,000 ML IV ONE (01:00)
[2020-03-12] MEDS ORDERED: ONDANSETRON 4MG/2ML VIAL IV ONE (01:00)
[2020-03-12 01:12] LABS: BLOOD UREA NITROGEN 25 MG/DL (7-18); CALCIUM LEVEL 9.7 MG/DL (8.8-10.2); CARBON DIOXIDE LEVEL 27 MEQ/L (21-32); CHLORIDE LEVEL 100 MEQ/L (98-107); GLOMERULAR FILTRATION RATE > 60.0 (>45); GLUCOSE, FASTING 200 MG/DL (70-100); POTASSIUM SERUM 4.1 MEQ/L (3.5-5.1); SODIUM LEVEL 137 MEQ/L (136-145)
[2020-03-12 01:21] LABS: BASOPHILS 2 % (0-1); EOSINOPHILS 3 % (0-3); LYMPHOCYTES 30 % (16-44); MONOCYTES 8 % (0-5); NEUTROPHILS 42 % (28-66)
[2020-03-12 01:22] LABS: PLATELET ESTIMATE NORMAL (NORMAL)
--- NOTE | 2020-03-12 01:48 | REPVR ---
PROCEDURE INFORMATION: Exam: CT Abdomen And Pelvis With Contrast Exam date and time: 03/12/2020 12:52 AM Age: 69 years old Clinical indication: Abdominal pain; Generalized; Patient HX: Recent ortho surgery 11-3 knee; Additional info: Abdominal pain, nasuea, vomiting TECHNIQUE: Imaging protocol: Computed tomography of the abdomen and pelvis with intravenous contrast. Radiation optimization: All CT scans at this facility use at least one of these dose optimization techniques: automated exposure control; mA and/or kV adjustment per patient size (includes targeted exams where dose is matched to clinical indication); or iterative reconstruction. Contrast material: ISO; Contrast volume: 100 ml; Contrast route: INTRAVENOUS (IV); COMPARISON: CT ABD/PEL W/IV CONTRAST ONLY 01/26/2019 4:09 PM FINDINGS: Tubes, catheters and devices: Pacemaker lead in the right ventricle the heart. Lungs: Scattered linear atelectasis of the lung bases. Heart: Mild anterior pericardial effusion. Liver: Normal. No mass. Gallbladder and bile ducts: CBD measures 1.5 cm. Status post cholecystectomy. Pancreas: Normal. No ductal dilation. Spleen: Normal. No splenomegaly. Adrenal glands: Normal. No mass. Kidneys and ureters: Normal. No hydronephrosis. Stomach and bowel: Diffuse dilated loops of small bowel. Apparent transition point in the pelvis just right of midline. (Series 201, image 107). Distal ileum is decompressed. Severe stool in the colon. Fluid in the colon consistent with diarrhea. Appendix: The appendix is not seen. However, there is no evidence of appendicitis. Intraperitoneal space: Unremarkable. No free air. No significant fluid collection. Vasculature: Unremarkable. No abdominal aortic aneurysm. Lymph nodes: Unremarkable. No enlarged lymph nodes. Urinary bladder: Unremarkable as visualized. Reproductive: Uterus is normal. Bones/joints: Unremarkable. No acute fracture. Soft tissues: Unremarkable. IMPRESSION: 1. Diffuse dilated loops of small bowel. Apparent transition point in the pelvis just right of midline. Suspicious for recurrent bowel obstruction. Possible adhesions. 2. No bowel perforation. 3. Dilated CBD. Unchanged from prior. Electronically signed by: Wilder Saenz On 03/12/2020 01:47:53 AM
[2020-03-12] MEDS ORDERED: METO200T28 PO (02:07)
[2020-03-12] MEDS ORDERED: D31000TA2 PO (02:09)
[2020-03-12] MEDS ORDERED: GLUC1TAB58 PO (02:09)
[2020-03-12] MEDS ORDERED: CODCAP10 PO (02:09)
[2020-03-12] MEDS ORDERED: GLUCOSE 4GM CHEW TABLET PO PRN (03:30)
[2020-03-12] MEDS ORDERED: ONDANSETRON 4MG/2ML VIAL IV PRN (03:30)
[2020-03-12] MEDS ORDERED: GLUCAGON INJ 1MG VIAL SC PRN (03:30)
[2020-03-12] MEDS ORDERED: DEXTROSE 50% 50 ML SYRINGE IV PRN (03:30)
--- NOTE | 2020-03-12 04:34 | HPEPDOC ---
[facility] Medical History & Physical Date of Admission Mar 12, 2020 Date of Service: Mar 12, 2020 Attending Physician: JESSICA LOUIS MD History and Physical CHIEF COMPLAINT: Nausea and vomiting HISTORY OF PRESENT ILLNESS: Patient is a 69-year-old female who was recently at [facility] for a total right knee replacement who reported to the emergency department earlier today with a chief complaint of nausea and vomiting. Patient says that she felt constipated for the last few days and had her gave her an enema which did help her a little bit. Patient says that she's been vomiting for the last few hours prior to reporting to the emergency department. Patient says she vomited about 4 times and it was a clear to yellow liquid with no blood in it. Patient has a history of a bowel obstruction in the past. In the emergency department, a CT of the abdomen and pelvis was performed and did show a transition point and dilated small bowel loops. Hospitalists were consult at for admission due to small bowel obstruction. Patient is complaining of some mild abdominal pain and mild nausea at this time. PAST MEDICAL HISTORY: 1. Diabetes mellitus. 2. Hyperlipidemia. 3. Atrial fibrillation status post ablation and watchman procedure with AICD implantation. 4. Hypertension PAST SURGICAL HISTORY: 1. Total right knee replacement on 03/08/2020. 2. Cardiac ablation. 3. Watchman device. 4. AICD implantation 5. Cholecystectomy 6. Appendectomy SOCIAL HISTORY: Patient denies smoking, alcohol use, or illicit drug use. FAMILY HISTORY: Patient was unaware of any pertinent family history ALLERGIES: Please see below. REVIEW OF SYSTEMS: General: Patient denies fevers HEENT: Patient denies headaches Cardiovascular: Patient denies chest pain Respiratory: Patient denies shortness of breath, cough GI: Patient reports abdominal pain, nausea, and vomiting. Patient denies diarrhea : Patient denies increased frequency or pain with urination Extremities: Patient reports mild pain where her right knee replacement was Neurological: Patient denies numbness or tingling in legs Skin: Patient denies any new rashes or lesions. Hematologic: Patient denies any easy bruising. Lymphatic: Patient denies any lumps lumps or bumps in neck, axilla, or groin HOME MEDICATIONS: Please see below. PHYSICAL EXAMINATION: VITAL SIGNS: See below General: Alert and oriented female patient who is laying on the ER stretcher when I walked in the room. Patient did not appear to be in any acute distress. HEENT: Normocephalic, atraumatic, moist mucous membranes. Neck: No lymphadenopathy or thyromegaly Cardiac: Regular rate and rhythm, no murmurs, normal S1, normal S2 Pulm: Clear to auscultation bilaterally. No wheezes, rhonchi, rales Abd: Mild distention with hypoactive bowel sounds. Mild tenderness to palpation throughout the abdomen. No rebound tenderness. Ext: No edema bilateral lower extremities. Bandage in place over the right knee. Skin: No evidence of rash LABORATORY DATA: See below. IMAGING: A CT of the abdomen and pelvis with IV contrast only performed on 03/12/2020 was reported showed diffuse dilated loops of small bowel, apparent transition point in the right pelvis just right of the midline. Suspicious for recurrent bowel obstruction, possible adhesions. No bowel perforation. Dilated CBD unchanged from prior. MICROBIOLOGY: Please see below. ASSESSMENT: Patient is a 69-year-old female who presents to the hospital with chief complaint of nausea who was diagnosed with a small bowel obstruction. PLAN: 1. Small bowel obstruction. Patient has a history of one small bowel obs truction. Patient says that an NG tube caused her to have chronic sinusitis and was told to only an NG tube if it was put in by a ENT. Patient does not appear overly uncomfortable at this time and has passed some gas and stool since being in the emergency department. At this time, we will hold off on placing an NG tube. I did discuss this with the patient saying that if she starts to become more uncomfortable and distended that we will have to readdress this issue and start an NG tube. Surgeon was contacted by ED physician and recommended admission. Surgical consultation is recommended in the morning. IV fluids have been started and the patient is nothing by mouth 2. Total right knee replacement. Patient states that her knee is feeling good and would like to walk around as much possible. Patient says that the bandages to remain in place for 2 weeks post surgery. 3. Diabetes mellitus. Patient has fingersticks every 6 hours with sliding scale coverage. Once patient began eating, this can be changed to before meals at bedtime coverage. 4. Hypertension. At this time I am holding her home medications as she is nothing by mouth and we will continue to monitor the patient's blood pressure. 5. Atrial fibrillation. Patient is not currently on anticoagulation as she had the watchman device placed and had an ablation. Patient will not be placed on telemetry as she does not have any indication at this time as her rate is normal and does not appear to be in atrial fibrillation at this time. 6. Hyperlipidemia. Medications currently on hold. Once the patient begins eating, medication can be restarted. 7. DVT prophylaxis Lovenox. 8. CODE STATUS: Full code Vital Signs Vital Signs Date Time Temp Pulse Resp B/P (MAP) Pulse Ox O2 Delivery O2 Flow Rate FiO2 03/12/20 03:31 83 18 Room Air 03/12/20 03:30 140/65 (90) 03/12/20 02:01 95 03/11/20 22:58 97.6 Laboratory Data Labs 24H Laboratory Tests 2 03/12/20 00:15: Neutrophils (%) (Auto) , Nucleated Red Blood Cells % (auto) 0.0, Neutrophils 42, Band Neutrophils 15H, Lymphocytes (Manual) 30, Monocytes (Manual) 8H, Eosinophils (Manual) 3, Basophils (Manual) 2H, Red Blood Cell Morphology NORMAL, Platelet Estimate NORMAL, Prothrombin Time 14.1H, Prothromb Time International Ratio 1.07, Activated Partial Thromboplast Time 22.4L, Anion Gap 10, Glomerular Filtration Rate > 60.0, Lactic Acid Level 2.2*H, Calcium Level 9.7, Total Bilirubin 0.9, Direct Bilirubin 0.3H, Aspartate Amino Transf (AST/SGOT) 81H, Alanine Aminotransferase (ALT/SGPT) 72, Alkaline Phosphatase 85, Total Creatine Kinase 146, Creatine Kinase MB 2.9, Creatine Kinase MB Relative Index 1.99, Troponin I < 0.02, Total Protein 6.9, Albumin 3.4, Albumin/Globulin Ratio 1.0L, Amylase Level 28, Lipase 65L 03/12/20 01:01: POC Glucose (Misc Panel) 206H, POC Sodium (Misc Panel) 136, POC Potassium (Misc Panel) 3.9, POC Chloride (Misc Panel) 98, POC Total CO2 (Misc Panel) 28.0H, POC Blood Urea Nitrogen (Misc Panel 24, POC Ionized Calcium (Misc Panel) 4.9, POC Creatinine (Misc Panel) 0.9, POC Hematocrit (Misc Panel) 39.0 03/12/20 02:13: Urine Color YELLOW, Urine Appearance CLEAR, Urine pH 5.0, Urine Specific [place] 1.042, Urine Protein NEGATIVE, Urine Glucose (UA) NEGATIVE, Urine Ketones 1+H, Urine Blood NEGATIVE, Urine Nitrite NEGATIVE, Urine Bilirubin NEGATIVE, Urine Urobilinogen 0.2, Urine Leukocyte Esterase NEGATIVE, Urine WBC (Auto) 1, Urine RBC (Auto) 1, Urine Hyaline Casts (Auto) 6, Urine Bacteria (Auto) NEGATIVE, Urine Squamous Epithelial Cells 1, Urine Mucus (Auto) SMALL, Urine Sperm (Auto) CBC/BMP Laboratory Tests 03/12/20 00:15 Microbiology Microbiology 03/12/20 Blood Culture, Received Pending 03/12/20 Blood Culture, Received Pending Home Medications Scheduled Ascorbic Acid (Vitamin C) 500 Mg Cap, 500 MG PO DAILY Aspirin (Ecotrin) 81 Mg Tablet.dr, 81 MG PO QHS Atorvastatin Calcium (Atorvastatin Calcium) 20 Mg Tab, 20 MG PO QHS Celecoxib (Celecoxib) 200 Mg Capsule, 200 MG PO BID Cholecalciferol (Vitamin D3) (Vitamin D3) 1,000 Unit Tablet, 1,000 UNITS PO DAILY Cod Liver Oil (Cod Liver Oil) 1 Each Capsule, 1 CAP PO DAILY Docusate Sodium (Docusate Sodium) 100 Mg Capsule, 100 MG PO BID Glucosamine/D3/Boswellia Jessica (Osteo Bi-Flex Tablet) 1 Each Tablet, 1 TAB PO BID Metformin HCl (Metformin HCl) 1,000 Mg Tab, 1,000 MG PO BID Metoprolol Succinate (Metoprolol Succinate) 200 Mg Tab.er.24h, 200 MG PO QAM Metoprolol Succinate (Metoprolol Succinate) 200 Mg Tab.er.24h, 100 MG PO QHS Quinapril HCl (Quinapril HCl) 40 Mg Tab, 40 MG PO DAILY Senna (Senna Lax) 8.6 Mg Tablet, 2 TAB PO QHS Scheduled PRN Ondansetron HCl (Ondansetron HCl) 4 Mg Tablet, 4 MG PO TID PRN for NAUSEA Oxycodone HCl (Oxycodone HCl) 10 Mg Tablet, 10 MG PO Q4H PRN for prn Polyethylene Glycol 3350 (Polyethylene Glycol 3350) 17 Gm Powd.pack, 1 PKT PO DAILYPRN PRN for CONSTIPATION Tramadol HCl (Tramadol HCl) 50 Mg Tablet, 50 MG PO Q6H PRN for PAIN Allergies Coded Allergies: Sulfa (Sulfonamide Antibiotics) (Verified Allergy, Intermediate, rash, 01/15/19) A-FIB/CHADSVASC A-FIB History Current/History of A-Fib/PAF?: Yes Current PO Anticoag Therapy: No Treatment Other reason anticoagulant not: watchman device, ablation GME ATTESTATION GME ATTESTATION My faculty preceptor for this patient encounter was physically present during the encounter and was fully available. All aspects of the patient interview, examination, medical decision making process, and medical care plan development were reviewed and approved by the faculty preceptor. The faculty preceptor is aware and concurs with the plan as stated in the body of this note and will attest to such by his/her cosignature. ATTENDING NOTE IJessica, have independently examined this patient and performed my own physical exam, as well as reviewed the documentation and edited where necessary. I have discussed in detail with the resident / student the findings and plan of treatment as documented by the resident / student and edited their note. I agree with their findings and treatment plan and have edited their documentation. I will continue to follow the patient during this hospital stay. ANNETTE HORTON DO Mar 12, 2020 04:33 JESSICA LOUIS MD Mar 22, 2020 05:02
[2020-03-12] MEDS: NS 1,000 ML IV SCH ×3 (05:10→18:35)
[2020-03-12] MEDS: HumaLOG INSULIN (NovoLOG) PER UNIT SC SCH ×4 (05:58→21:00)
[2020-03-12 07:21] LABS: HEMATOCRIT 36.1 % (36.0-47.0); HEMOGLOBIN 11.3 g/dl (12.0-15.5); MEAN CORPUSCULAR HEMOGLOBIN 29.8 pg (27.0-33.0); MEAN CORPUSCULAR HGB CONC 31.3 g/dl (32.0-36.5); MEAN CORPUSCULAR VOLUME 95.3 fl (80.0-96.0); PLATELET COUNT, AUTOMATED 221 10^3/uL (150-450); RED BLOOD COUNT 3.79 10^6/uL (4.00-5.40); WHITE BLOOD COUNT 6.1 10^3/uL (4.0-10.0)
[2020-03-12 07:45] LABS: BLOOD UREA NITROGEN 21 MG/DL (7-18); CALCIUM LEVEL 8.4 MG/DL (8.8-10.2); CARBON DIOXIDE LEVEL 26 MEQ/L (21-32); CHLORIDE LEVEL 104 MEQ/L (98-107); CREATININE FOR GFR 0.73 MG/DL (0.55-1.30); GLOMERULAR FILTRATION RATE > 60.0 (>45); GLUCOSE, FASTING 158 MG/DL (70-100); MAGNESIUM LEVEL 1.7 MG/DL (1.8-2.4); POTASSIUM SERUM 3.8 MEQ/L (3.5-5.1); SODIUM LEVEL 139 MEQ/L (136-145)
[2020-03-12 07:48] LABS: ATYPICAL LYMPH 2 % (0-5); BASOPHILS 1 % (0-1); EOSINOPHILS 1 % (0-3); LYMPHOCYTES 31 % (16-44); MONOCYTES 7 % (0-5); NEUTROPHILS 57 % (28-66)
[2020-03-12 07:49] LABS: PLATELET ESTIMATE NORMAL (NORMAL)
[2020-03-12 08:00] VITALS: BP 104/54
[2020-03-12] MEDS: METOPROLOL SUCC (TopROL XL) 100MG *XL* TAB PO SCH (09:00)
[2020-03-12] MEDS ORDERED: MIRALAX *UNIT DOSE* 17GM PACKET PO PRN (09:15)
[2020-03-12] MEDS: VITAMIN D 1,000 INTERNATIONAL UNITS TABLET PO SCH (09:37)
[2020-03-12] MEDS: DOCUSATE SODIUM 100 MG CAP PO SCH ×2 (09:37→21:00)
[2020-03-12] MEDS: ASCORBIC ACID 500 MG TAB PO SCH (09:37)
[2020-03-12] MEDS: ENOXAPARIN 40MG/0.4ML SYRINGE (J1650 PER 10MG) SC SCH (09:38)
[2020-03-12] MEDS: QUINAPRIL 20 MG TAB PO SCH (10:28)
[2020-03-12] MEDS: traMADol 50 MG TAB PO PRN ×3 (10:29→23:25)
[2020-03-12 14:00] VITALS: BP 91/53
--- NOTE | 2020-03-12 17:00 | ECGEPIP ---
[facility] - ED Test Date: 2020-03-11 Pat Name: JUNIOR ORDAZ Department: Room: [facility] Gender: Female Fixture Designer: ace : 1950 Requested By: OLAYINKA Burnett Order Number: [id number] Reading MD: Beth Mueller Measurements Intervals [place] Rate: 85 P: 57 NM: 185 QRS: -7 QRSD: 100 T: 15 QT: 365 QTc: 436 Interpretive Statements SINUS RHYTHM SIMILAR 11/28/17 Electronically Signed on 03-12-2020 17:00:27 EST by Beth Mueller
[2020-03-12 17:16] VITALS: BP 115/97
[2020-03-12] MEDS ORDERED: SENN18TA PO (20:21)
[2020-03-12] MEDS ORDERED: PEG1POW PO (20:21)
[2020-03-12] MEDS ORDERED: DOCU100C16 PO (20:21)
[2020-03-12] MEDS ORDERED: ATORVASTATIN 20 MG TAB PO SCH (21:00)
[2020-03-12] MEDS ORDERED: SENNA 8.6 MG TAB (SENOKOT) PO SCH (21:00)
[2020-03-12] MEDS ORDERED: ASPIRIN 81 MG ENTERIC TAB PO SCH (21:00)
[2020-03-12] MEDS ORDERED: METOPROLOL SUCC (TopROL XL) 100MG *XL* TAB PO SCH (21:00)
[2020-03-12 22:00] VITALS: BP 112/80
[2020-03-13] MEDS ORDERED: METOCLOPRAMIDE INJ 10MG/2ML VIAL (J2765 PER 1) IV PRN
[2020-03-13] MEDS: NS 1,000 ML IV SCH ×4 (02:33→20:31)
[2020-03-13] MEDS: traMADol 50 MG TAB PO PRN ×2 (05:27→11:41)
[2020-03-13 06:00] VITALS: BP 158/84
[2020-03-13 06:53] LABS: BASO % 0.1 % (0.0-1.0); EOS # 0.1 10^3/uL (0.0-0.5); EOS % 0.7 % (0.0-3.0); HEMATOCRIT 35.7 % (36.0-47.0); HEMOGLOBIN 11.3 g/dl (12.0-15.5); LYMPH # 1.7 10^3/uL (1.5-5.0); LYMPH % 23.1 % (24.0-44.0); MEAN CORPUSCULAR HEMOGLOBIN 30.5 pg (27.0-33.0); MEAN CORPUSCULAR HGB CONC 31.7 g/dl (32.0-36.5); MEAN CORPUSCULAR VOLUME 96.5 fl (80.0-96.0); MONO # 0.8 10^3/uL (0.0-0.8); MONO % 11.5 % (0.0-5.0); NEUTROPHILS # 4.6 10^3/uL (1.5-8.5); NEUTROPHILS % 64.2 % (36.0-66.0); PLATELET COUNT, AUTOMATED 248 10^3/uL (150-450); WHITE BLOOD COUNT 7.2 10^3/uL (4.0-10.0)
[2020-03-13 07:16] LABS: BLOOD UREA NITROGEN 18 MG/DL (7-18); CALCIUM LEVEL 8.3 MG/DL (8.8-10.2); CARBON DIOXIDE LEVEL 27 MEQ/L (21-32); CHLORIDE LEVEL 108 MEQ/L (98-107); GLOMERULAR FILTRATION RATE > 60.0 (>45); GLUCOSE, FASTING 185 MG/DL (70-100); MAGNESIUM LEVEL 1.8 MG/DL (1.8-2.4); POTASSIUM SERUM 3.8 MEQ/L (3.5-5.1); SODIUM LEVEL 140 MEQ/L (136-145)
[2020-03-13] MEDS: HumaLOG INSULIN (NovoLOG) PER UNIT SC SCH ×3 (08:45→18:00)
[2020-03-13] MEDS: DOCUSATE SODIUM 100 MG CAP PO SCH (09:17)
[2020-03-13] MEDS: QUINAPRIL 20 MG TAB PO SCH (09:17)
[2020-03-13] MEDS: METOPROLOL SUCC (TopROL XL) 100MG *XL* TAB PO SCH (09:18)
[2020-03-13] MEDS: VITAMIN D 1,000 INTERNATIONAL UNITS TABLET PO SCH (09:18)
[2020-03-13] MEDS: ASCORBIC ACID 500 MG TAB PO SCH (09:18)
[2020-03-13] MEDS: ENOXAPARIN 40MG/0.4ML SYRINGE (J1650 PER 10MG) SC SCH (09:18)
--- NOTE | 2020-03-13 09:41 | REP ---
INDICATION: sbo. COMPARISON: CT abdomen pelvis 03/12/2020, AP chest 11/28/2017, acute abdominal series 04/22/2013. TECHNIQUE: AP seated chest with supine and cross-table lateral abdomen FINDINGS: Chest: Single lead AICD pacer with lead tip in the right ventricle. Nasogastric tube is well into the stomach in the left upper quadrant but curved back on itself within the fundus. Lungs adequately inflated. There is some left base subsegmental atelectatic change now present right lung was clear there is left atrial enlargement and left ventricular configuration of the heart no edema. Aorta is mildly tortuous. Airway midline. Bones intact. Abdomen: Right upper quadrant surgical clips noted. Nasogastric tube in the stomach curve back on itself in the fundus. There are dilated small bowel loops in the upper and mid abdomen with air-fluid levels throughout small bowel loops in the abdomen and upper pelvis. Cross-table lateral view shows no free air there is no pneumatosis. Less stool and gas are seen over the course of the colon than on yesterday's study. IMPRESSION: 1. Small bowel obstructive pattern similar to yesterday's examination. The upper and mid abdominal small bowel loop caliber is unchanged. Some of the lower abdomen upper pelvis small bowel loops show less distension. No free air. 2. AICD pacer and nasogastric tube as described. There is left ventricular configuration of the heart with left atrial enlargement but no pulmonary edema or definite effusion. There is patchy left base atelectasis now present abutting the diaphragm. <Electronically signed by Jad Cervantes > 03/13/20 0937
[2020-03-13 14:00] VITALS: BP 135/79
--- NOTE | 2020-03-13 16:45 | IPNPDOC ---
Date Seen The patient was seen on 03/13/20. Progress Note SUBJECTIVE: Early in the day on 03/12/2020, after discussing case with surgery, we had advanced diet as patient had had 4 bowel movements since she had been admitted. She tolerated breakfast and lunch well; however, she began to experience more and more abdominal "fullness" and by dinner had notified the nursing staff. NG tube. 1200 mL of fecal-like fluid came out of NG tube overnight while on IS. Patient had much improved abdominal fullness. On the morning of 03/13/2020, she went for KUB which showed small bowel obstructive pattern similar to 03/12/20. Dr. Yoder, general surgery, saw and it is agreed to keep NG tube in overnight, c/w fluids. She denies incr abd pain, n/v/d, fevers, chills, shortness of breath. OBJECTIVE: PHYSICAL EXAMINATION: VITAL SIGNS: Please see below General: in NAD, sitting up at bedside chair HEENT: Normocephalic, atraumatic, moist mucous membranes, NG tube in place Neck: No lymphadenopathy or thyromegaly Cardiac: Regular rate and rhythm, no murmurs, normal S1, normal S2 Pulm: Clear to auscultation bilaterally. No wheezes, rhonchi, rales Abd: obese abd, hypoactive bowel sounds in 4 quad. Mild tenderness to palpation throughout the abdomen. No rebound tenderness. Ext: No edema bilateral lower extremities. Bandage in place over the right knee. Skin: No evidence of rash Psych: Mood and affect appropriate LABORATORY DATA: Please see below MICROBIOLOGY: Please see below. IMAGING: KUB 03/13/20: 1. Small bowel obstructive pattern similar to yesterday's examination. The upper and mid abdominal small bowel loop caliber is unchanged. Some of the lower abdomen upper pelvis small bowel loops show less distension. No free air. 2. AICD pacer and nasogastric tube as described. There is left ventricular configuration of the heart with left atrial enlargement but no pulmonary edema or definite effusion. There is patchy left base atelectasis now present abutting the diaphragm. CT of the abdomen and pelvis with IV contrast 03/12/2020: diffuse dilated loops of small bowel, apparent transition point in the right pelvis just right of the midline. Suspicious for recurrent bowel obstruction, possible adhesions. No bowel perforation. Dilated CBD unchanged from prior. ASSESSMENT: Patient is a 69-year-old female with PMH of recent right knee replacement, DM, HTN, atrial fibrillation admitted for ileus vs. SBO. PLAN: #Abdominal pain 2/2 to partial obstruction vs. ileus -WBC wnl, NG tube to intermittent suction -KUB today above- upon review with surgery Dr. Yoder thinks this looks more like partial SBO or ileus vs. full SBO -C/w NPO, IVFs, close monitoring of I&O, encouraging ambulation during day and PT/OT. Pain control with low dose morphine -Surgery following closely. #Total right knee replacement -Pain controlled on current regimen -C/w PT/OT -F/u with ortho as o/p #Diabetes mellitus -ISS Q6H, FS, NPO. -Hypoglycemic protocol in place #Hypertension -Put PO medications on hold -Restart when taking diet #Atrial fibrillation -Controlled -Patient is not currently on anticoagulation as she had the watchman device placed and had an ablation. -Put PO medications on hold -Restart when taking diet #Hyperlipidemia. -Put PO medications on hold -Restart when taking diet #DVT prophylaxis - Lovenox. DISPOSITION: Currently inpatient status. Plan is PT/OT, home when medically improved. VS, I&O, 24H, [place] Vital Signs/I&O Vital Signs Date Time Temp Pulse Resp B/P (MAP) Pulse Ox O2 Delivery O2 Flow Rate FiO2 03/13/20 14:00 97.8 75 19 135/79 (97) 96 Room Air I&O- Last 24 Hours up to 6 AM 03/13/20 06:00 Intake Total 3080 ml Output Total 1200 ml Balance 1880 ml Laboratory Data 24H LABS Laboratory Tests 2 03/12/20 16:52: Bedside Glucose (Misc Panel) 151H 03/12/20 20:03: Bedside Glucose (Misc Panel) 173H 03/13/20 06:35: Immature Granulocyte % (Auto) 0.4, Neutrophils (%) (Auto) 64.2, Lymphocytes (%) (Auto) 23.1L, Monocytes (%) (Auto) 11.5H, Eosinophils (%) (Auto) 0.7, Basophils (%) (Auto) 0.1, Neutrophils # (Auto) 4.6, Lymphocytes # (Auto) 1.7, Monocytes # (Auto) 0.8, Eosinophils # (Auto) 0.1, Basophils # (Auto) 0.0, Nucleated Red Blood Cells % (auto) 0.0, Anion Gap 5L, Glomerular Filtration Rate > 60.0, Calcium Level 8.3L, Magnesium Level 1.8 03/13/20 11:35: Bedside Glucose (Misc Panel) 105 03/13/20 16:38: Bedside Glucose (Misc Panel) 124H CBC/BMP Laboratory Tests 03/13/20 06:35 Microbiology Microbiology 03/12/20 Blood Culture - Preliminary, Resulted No growth after 24 hours . All specim... 03/12/20 Blood Culture - Preliminary, Resulted No growth after 24 hours . All specim... Current Medications Current Medications Medications (Trade) Dose Ordered Sig/Daniel Route PRN Reason Start Time Stop Time Status Last Admin Dose Admin Ascorbic Acid (Vitamin C) 500 mg DAILY PO 03/12/20 09:00 03/13/20 09:18 Aspirin (Ecotrin) 81 mg QHS PO 03/12/20 21:00 03/12/20 21:01 Atorvastatin Calcium (Lipitor) 20 mg QHS PO 03/12/20 21:00 03/12/20 21:00 Dextrose (Dextrose 50%) 25 ml ASDIRECTED PRN IV SEE LABEL COMMENTS 03/12/20 03:30 Docusate Sodium (Colace) 100 mg BID PO 03/12/20 09:00 03/13/20 09:17 Enoxaparin Sodium (Lovenox) 40 mg DAILY SC 03/12/20 09:00 03/13/20 09:18 Glucagon (Glucagon) 1 mg ASDIRECTED PRN SC SEE LABEL COMMENTS 03/12/20 03:30 Glucose (Glucose) 16 GM ASDIRECTED PRN PO SEE LABEL COMMENTS 03/12/20 03:30 Home Med (Med Rec Complete!) ASDIRECTED XX 03/12/20 02:15 03/12/20 02:18 DC Insulin Human Lispro (HumaLOG INSULIN) SEE PROTOCOL TABLE ACHS SC 03/12/20 17:30 03/13/20 08:45 Insulin Human Lispro (HumaLOG INSULIN) SEE PROTOCOL TABLE Q6H SC 03/12/20 06:00 03/12/20 16:21 DC 03/12/20 12:51 Metoclopramide HCl (REGLAN INJection) 5 mg Q6HP PRN IV NAUSEA OR VOMITING 03/13/20 00:00 03/12/20 23:53 Metoprolol Succinate (TopROL XL) 100 mg QHS PO 03/12/20 21:00 03/12/20 21:00 Metoprolol Succinate (TopROL XL) 200 mg QAM PO 03/12/20 09:00 03/13/20 09:18 Morphine Sulfate (Morphine Sulfate Inj) 1 mg Q2H PRN IV MODERATE PAIN (PS 5-7) 03/12/20 03:30 03/12/20 09:11 DC Morphine Sulfate (Morphine Sulfate Inj) 2 mg Q2H PRN IV SEVERE PAIN (PS 8-10) 03/12/20 03:30 03/12/20 09:11 DC Morphine Sulfate (Morphine Sulfate Inj) 2 mg Q30M PRN IV MODERATE PAIN (PS 5-7) 03/12/20 01:00 03/12/20 09:11 DC 03/12/20 01:33 Ondansetron HCl (ZOFRAN INJection) 4 mg Q4HP PRN IV NAUSEA OR VOMITING 03/12/20 03:30 03/12/20 21:55 Polyethylene Glycol (Miralax) 1 pkt DAILYPRN PRN PO CONSTIPATION 03/12/20 09:15 Quinapril HCl (Accupril) 40 mg DAILY PO 03/12/20 09:00 03/13/20 09:17 Senna (Senokot) 2 tab QHS PO 03/12/20 21:00 03/12/20 21:01 Sodium Chloride 1,000 ml @ 130 mls/hr Q7H42M IV 03/12/20 03:27 03/13/20 09:19 Tramadol HCl (Ultram) 50 mg Q6H PRN PO PAIN 03/12/20 09:15 03/13/20 11:41 Vitamin D (Vitamin D) 1,000 units DAILY PO 03/12/20 09:00 03/13/20 09:18 Allergies Coded Allergies: Sulfa (Sulfonamide Antibiotics) (Verified Allergy, Intermediate, rash, 01/15/19) Ella Matt MD Mar 13, 2020 16:45
[2020-03-13] MEDS ORDERED: MORPHINE 2 MG/ML 1ML VIAL (J2270) IV PRN (17:15)
[2020-03-13] MEDS: MORPHINE 2 MG/ML 1ML VIAL (J2270) IV PRN (17:56)
[2020-03-13 22:00] VITALS: BP 158/84
[2020-03-14] MEDS: HumaLOG INSULIN (NovoLOG) PER UNIT SC SCH ×4 (00:27→17:15)
[2020-03-14] MEDS: MORPHINE 2 MG/ML 1ML VIAL (J2270) IV PRN ×2 (02:11→10:22)
[2020-03-14] MEDS: NS 1,000 ML IV SCH ×2 (04:11→17:15)
[2020-03-14 06:00] VITALS: BP 133/69
[2020-03-14 08:33] LABS: BASO % 0.3 % (0.0-1.0); EOS # 0.1 10^3/uL (0.0-0.5); EOS % 1.5 % (0.0-3.0); HEMATOCRIT 32.6 % (36.0-47.0); LYMPH % 29.7 % (24.0-44.0); MEAN CORPUSCULAR HEMOGLOBIN 29.8 pg (27.0-33.0); MEAN CORPUSCULAR HGB CONC 30.7 g/dl (32.0-36.5); MONO # 0.7 10^3/uL (0.0-0.8); MONO % 9.7 % (0.0-5.0); NEUTROPHILS # 3.8 10^3/uL (1.5-8.5); NEUTROPHILS % 57.2 % (36.0-66.0); PLATELET COUNT, AUTOMATED 217 10^3/uL (150-450); RED BLOOD COUNT 3.36 10^6/uL (4.00-5.40); WHITE BLOOD COUNT 6.7 10^3/uL (4.0-10.0)
[2020-03-14 08:58] LABS: BLOOD UREA NITROGEN 9 MG/DL (7-18); CALCIUM LEVEL 7.6 MG/DL (8.8-10.2); CARBON DIOXIDE LEVEL 25 MEQ/L (21-32); CHLORIDE LEVEL 110 MEQ/L (98-107); GLOMERULAR FILTRATION RATE > 60.0 (>45); GLUCOSE, FASTING 104 MG/DL (70-100); MAGNESIUM LEVEL 1.6 MG/DL (1.8-2.4); POTASSIUM SERUM 3.2 MEQ/L (3.5-5.1); SODIUM LEVEL 141 MEQ/L (136-145)
[2020-03-14] MEDS ORDERED: BISACODYL 10 MG SUPP PR ONE (09:45)
[2020-03-14] MEDS: ALVIMOPAN 12 MG CAPSULE (ENTEREG) PO SCH ×2 (10:20→21:23)
[2020-03-14] MEDS: ASCORBIC ACID 500 MG TAB PO SCH (10:20)
[2020-03-14] MEDS: ENOXAPARIN 40MG/0.4ML SYRINGE (J1650 PER 10MG) SC SCH (10:21)
--- NOTE | 2020-03-14 11:15 | REP ---
INDICATION: ileus sp knee surgery/ ?better. COMPARISON: 03/13/2020, CT 03/12/2020 TECHNIQUE: Three view acute abdominal series FINDINGS: PA chest: AICD pacer with its lead tip in the right ventricle again seen. Nasogastric tube coursing into the stomach and left upper quadrant curving back on itself in the fundus unchanged. Some basilar atelectatic change bilaterally. CP angles are sharply defined there is cardiomegaly with left atrial and ventricular enlargement and a tortuous aorta all unchanged. No free air under the diaphragm. Flat upright abdomen: There are few air-fluid levels in nondilated small bowel loops. Small bowel caliber is diminished since yesterday's study. Stool and gas scattered throughout the colon to the rectosigmoid. Right upper quadrant clips from prior cholecystectomy. Degenerative changes in the lower lumbar spine. No abnormal calcifications over the renal fossa or expected course of the ureters. IMPRESSION: 1. Improving pattern of ileus with caliber decreased from yesterday's study which suggested a component of partial small bowel obstruction. Few air-fluid levels scattered with some smaller diameter small bowel loops. Stool and gas scattered throughout the colon. No change in the chest with some basilar atelectatic changes. <Electronically signed by Jad Cervantes > 03/14/20 1112
[2020-03-14 14:00] VITALS: BP 138/77
[2020-03-14] MEDS: KETOROLAC 30 MG/ML 1ML VIAL IV SCH ×2 (14:00→21:25)
[2020-03-14] MEDS: traMADol 50 MG TAB PO PRN (15:51)
--- NOTE | 2020-03-14 16:07 | IPNPDOC ---
Date Seen The patient was seen on 03/14/20. Progress Note SUBJECTIVE: Repeat KUB, showed some improvement in ileus/partial SBO. Patient had 1 very small BM overnight. NG tube still in place, surgery to reassess today. Started IV toradol as patient does not wish to have narcotic IV. Have not restarted home PO meds again. She is slightly frustrated today. Reconsulted PT to keep working with her while here due to her recent right knee replacement. She denies incr abd pain, n/v/d, fevers, chills, shortness of breath. OBJECTIVE: PHYSICAL EXAMINATION: VITAL SIGNS: Please see below General: in NAD, sitting up at bedside chair HEENT: Normocephalic, atraumatic, moist mucous membranes, NG tube in place Neck: No lymphadenopathy or thyromegaly Cardiac: Regular rate and rhythm, no murmurs, normal S1, normal S2 Pulm: Clear to auscultation bilaterally. No wheezes, rhonchi, rales Abd: obese abd, hypoactive bowel sounds in 4 quad. Mild tenderness to palpation throughout the abdomen. No rebound tenderness. Ext: No edema bilateral lower extremities. Bandage in place over the right knee where recent surgery took place. no increased erythema or incr tenderness . Skin: No evidence of rash Psych: Mood and affect appropriate LABORATORY DATA: Please see below MICROBIOLOGY: Please see below. IMAGING: KUB 03/14/20: 1. Improving pattern of ileus with caliber decreased from yesterday's study which suggested a component of partial small bowel obstruction. Few air-fluid levels scattered with some smaller diameter small bowel loops. Stool and gas scattered throughout the colon. No change in the chest with some basilar atelectatic changes. KUB 03/13/20: 1. Small bowel obstructive pattern similar to yesterday's examination. The upper and mid abdominal small bowel loop caliber is unchanged. Some of the lower abdomen upper pelvis small bowel loops show less distension. No free air. 2. AICD pacer and nasogastric tube as described. There is left ventricular configuration of the heart with left atrial enlargement but no pulmonary edema or definite effusion. There is patchy left base atelectasis now present abutting the diaphragm. CT of the abdomen and pelvis with IV contrast 03/12/2020: diffuse dilated loops of small bowel, apparent transition point in the right pelvis just right of the midline. Suspicious for recurrent bowel obstruction, possible adhesions. No bowel perforation. Dilated CBD unchanged from prior. ASSESSMENT: Patient is a 69-year-old female with PMH of recent right knee replacement, DM, HTN, atrial fibrillation admitted for ileus vs. SBO. PLAN: #Abdominal pain 2/2 to partial SBO vs. ileus -WBC wnl, NG tube remains to intermittent suction -One very small BM overnight -KUB today above- shown some improvement -C/w NPO, IVFs, close monitoring of I&O, encouraging ambulation during day and PT/OT. Pain control, d/ashley morphine and added toradol -Surgery following closely. #Total right knee replacement -Pain controlled on current regimen -C/w PT -F/u with ortho as o/p #Diabetes mellitus -ISS Q6H, FS, NPO. -Hypoglycemic protocol in place #Hypertension -Put PO medications on hold -Restart when taking diet #Atrial fibrillation -Controlled -Patient is not currently on anticoagulation as she had the watchman device placed and had an ablation. -Put PO medications on hold -Restart when taking diet #Hyperlipidemia. -Put PO medications on hold -Restart when taking diet #DVT prophylaxis - Lovenox. DISPOSITION: Currently inpatient status. Plan is PT/OT, home when medically impr [place]. Surgery following closely. VS, I&O, 24H, [place] Vital Signs/I&O Vital Signs Date Time Temp Pulse Resp B/P (MAP) Pulse Ox O2 Delivery O2 Flow Rate FiO2 03/14/20 15:51 16 03/14/20 14:00 98.6 82 138/77 (97) 97 Room Air I&O- Last 24 Hours up to 6 AM 03/14/20 06:00 Intake Total 1210 ml Output Total 400 ml Balance 810 ml Laboratory Data 24H LABS Laboratory Tests 2 03/13/20 16:38: Bedside Glucose (Misc Panel) 124H 03/14/20 00:12: Bedside Glucose (Misc Panel) 120H 03/14/20 05:56: Bedside Glucose (Misc Panel) 110 03/14/20 08:01: Immature Granulocyte % (Auto) 1.6, Neutrophils (%) (Auto) 57.2, Lymphocytes (%) (Auto) 29.7, Monocytes (%) (Auto) 9.7H, Eosinophils (%) (Auto) 1.5, Basophils (%) (Auto) 0.3, Neutrophils # (Auto) 3.8, Lymphocytes # (Auto) 2.0, Monocytes # (Auto) 0.7, Eosinophils # (Auto) 0.1, Basophils # (Auto) 0.0, Nucleated Red Blood Cells % (auto) 0.0, Anion Gap 6L, Glomerular Filtration Rate > 60.0, Calcium Level 7.6L, Magnesium Level 1.6L 03/14/20 11:36: Bedside Glucose (Misc Panel) 100 03/14/20 14:58: Bedside Glucose (Misc Panel) 93 CBC/BMP Laboratory Tests 03/14/20 08:01 Microbiology Microbiology 03/12/20 Blood Culture - Preliminary, Resulted No Growth after 48 hours. All Specime... 03/12/20 Blood Culture - Preliminary, Resulted No Growth after 48 hours. All Specime... Current Medications Current Medications Medications (Trade) Dose Ordered Sig/Daniel Route PRN Reason Start Time Stop Time Status Last Admin Dose Admin Alvimopan (Entereg) 12 mg BID PO 03/14/20 09:00 03/21/20 08:59 03/14/20 10:20 Ascorbic Acid (Vitamin C) 500 mg DAILY PO 03/12/20 09:00 03/14/20 10:20 Aspirin (Ecotrin) 81 mg QHS PO 03/12/20 21:00 03/13/20 17:01 DC 03/12/20 21:01 Atorvastatin Calcium (Lipitor) 20 mg QHS PO 03/12/20 21:00 03/13/20 17:01 DC 03/12/20 21:00 Dextrose (Dextrose 50%) 25 ml ASDIRECTED PRN IV SEE LABEL COMMENTS 03/12/20 03:30 Docusate Sodium (Colace) 100 mg BID PO 03/12/20 09:00 03/13/20 17:01 DC 03/13/20 09:17 Enoxaparin Sodium (Lovenox) 40 mg DAILY SC 03/12/20 09:00 03/14/20 10:21 Glucagon (Glucagon) 1 mg ASDIRECTED PRN SC SEE LABEL COMMENTS 03/12/20 03:30 Glucose (Glucose) 16 GM ASDIRECTED PRN PO SEE LABEL COMMENTS 03/12/20 03:30 Home Med (Med Rec Complete!) ASDIRECTED XX 03/12/20 02:15 03/12/20 02:18 DC Insulin Human Lispro (HumaLOG INSULIN) SEE PROTOCOL TABLE ACHS DC 03/12/20 17:30 03/13/20 16:57 DC 03/13/20 08:45 Insulin Human Lispro (HumaLOG INSULIN) SEE PROTOCOL TABLE Q6H DC 03/12/20 06:00 03/12/20 16:21 DC 03/12/20 12:51 Insulin Human Lispro (HumaLOG INSULIN) SEE PROTOCOL TABLE Q6H DC 03/13/20 18:00 03/14/20 06:06 Ketorolac Tromethamine (ToRADol) 15 mg Q8H IV 03/14/20 16:00 03/19/20 15:59 UNV Metoclopramide HCl (REGLAN INJection) 5 mg Q6HP PRN IV NAUSEA OR VOMITING 03/13/20 00:00 03/12/20 23:53 Metoprolol Succinate (TopROL XL) 100 mg QHS PO 03/12/20 21:00 03/13/20 17:01 DC 03/12/20 21:00 Metoprolol Succinate (TopROL XL) 200 mg QAM PO 03/12/20 09:00 03/13/20 17:01 DC 03/13/20 09:18 Morphine Sulfate (Morphine Sulfate Inj) 0.5 mg Q6H PRN IV MODERATE PAIN (PS 5-7) 03/13/20 17:15 Cancel Morphine Sulfate (Morphine Sulfate Inj) 1 mg Q2H PRN IV MODERATE PAIN (PS 5-7) 03/12/20 03:30 03/12/20 09:11 DC Morphine Sulfate (Morphine Sulfate Inj) 1 mg Q8HP PRN IV SEVERE PAIN (PS 8-10) 03/13/20 17:15 03/14/20 15:16 DC 03/14/20 10:22 Morphine Sulfate (Morphine Sulfate Inj) 2 mg Q2H PRN IV SEVERE PAIN (PS 8-10) 03/12/20 03:30 03/12/20 09:11 DC Morphine Sulfate (Morphine Sulfate Inj) 2 mg Q30M PRN IV MODERATE PAIN (PS 5-7) 03/12/20 01:00 03/12/20 09:11 DC 03/12/20 01:33 Ondansetron HCl (ZOFRAN INJection) 4 mg Q4HP PRN IV NAUSEA OR VOMITING 03/12/20 03:30 03/12/20 21:55 Polyethylene Glycol (Miralax) 1 pkt DAILYPRN PRN PO CONSTIPATION 03/12/20 09:15 03/13/20 17:01 DC Potassium Chloride 10 meq/ IV Miscellaneous Supplies 100 ml @ 100 mls/hr ASDIRECTED IV 03/14/20 16:00 UNV Quinapril HCl (Accupril) 40 mg DAILY PO 03/12/20 09:00 03/13/20 17:01 DC 03/13/20 09:17 Senna (Senokot) 2 tab QHS PO 03/12/20 21:00 03/13/20 17:01 DC 03/12/20 21:01 Sodium Chloride 1,000 ml @ 130 mls/hr Q7H42M IV 03/12/20 03:27 03/14/20 04:11 Tramadol HCl (Ultram) 50 mg Q6H PRN PO PAIN 03/12/20 09:15 03/13/20 17:01 DC 03/13/20 11:41 Tramadol HCl (Ultram) 50 mg Q6HP PRN PO MODERATE PAIN (PS 5-7) 03/14/20 12:00 03/14/20 15:51 Vitamin D (Vitamin D) 1,000 units DAILY PO 03/12/20 09:00 03/13/20 17:01 DC 03/13/20 09:18 Allergies Coded Allergies: Sulfa (Sulfonamide Antibiotics) (Verified Allergy, Intermediate, rash, 01/15/19) Ella Matt MD Mar 14, 2020 16:07
[2020-03-14] MEDS: KCL 10MEQ/100ML SWI (KRUN) 10 MEQ in IV 1 EA IV SCH ×4 (16:40→23:06)
[2020-03-14 22:00] VITALS: BP 145/79
[2020-03-14] MEDS ORDERED: KCL 10MEQ/100ML SWI (KRUN) 10 MEQ in IV 1 EA IV SCH (23:15)
[2020-03-15] MEDS: NS 1,000 ML IV SCH ×2 (00:45→06:18)
[2020-03-15 06:00] VITALS: BP 182/97
[2020-03-15] MEDS: HumaLOG INSULIN (NovoLOG) PER UNIT SC SCH ×5 (06:00→20:45)
[2020-03-15] MEDS: KETOROLAC 30 MG/ML 1ML VIAL IV SCH ×2 (06:18→13:46)
[2020-03-15 07:17] LABS: BASO % 0.3 % (0.0-1.0); EOS # 0.1 10^3/uL (0.0-0.5); EOS % 1.2 % (0.0-3.0); HEMOGLOBIN 10.2 g/dl (12.0-15.5); LYMPH # 1.9 10^3/uL (1.5-5.0); LYMPH % 21.5 % (24.0-44.0); MEAN CORPUSCULAR HEMOGLOBIN 29.7 pg (27.0-33.0); MEAN CORPUSCULAR HGB CONC 30.9 g/dl (32.0-36.5); MEAN CORPUSCULAR VOLUME 96.2 fl (80.0-96.0); MONO # 0.9 10^3/uL (0.0-0.8); MONO % 9.8 % (0.0-5.0); NEUTROPHILS # 5.7 10^3/uL (1.5-8.5); NEUTROPHILS % 63.8 % (36.0-66.0); PLATELET COUNT, AUTOMATED 234 10^3/uL (150-450); RED BLOOD COUNT 3.43 10^6/uL (4.00-5.40); WHITE BLOOD COUNT 8.9 10^3/uL (4.0-10.0)
[2020-03-15 07:55] LABS: BLOOD UREA NITROGEN 5 MG/DL (7-18); CARBON DIOXIDE LEVEL 18 MEQ/L (21-32); CHLORIDE LEVEL 111 MEQ/L (98-107); CREATININE FOR GFR 0.52 MG/DL (0.55-1.30); GLOMERULAR FILTRATION RATE > 60.0 (>45); GLUCOSE, FASTING 114 MG/DL (70-100); MAGNESIUM LEVEL 1.6 MG/DL (1.8-2.4); POTASSIUM SERUM 4.1 MEQ/L (3.5-5.1); SODIUM LEVEL 141 MEQ/L (136-145)
[2020-03-15] MEDS: ALVIMOPAN 12 MG CAPSULE (ENTEREG) PO SCH ×2 (08:58→20:47)
[2020-03-15] MEDS: DOCUSATE SODIUM 100 MG CAP PO SCH ×2 (08:58→20:47)
[2020-03-15] MEDS: ASCORBIC ACID 500 MG TAB PO SCH (08:58)
[2020-03-15] MEDS: ENOXAPARIN 40MG/0.4ML SYRINGE (J1650 PER 10MG) SC SCH (08:59)
--- NOTE | 2020-03-15 13:49 | IPNPDOC ---
Date Seen The patient was seen on 03/15/20. Progress Note SUBJECTIVE: Patient was seen and examined at bedside. NG tube has been removed by Dr. Yoder. Patient states that abdominal pain has improved from yesterday. She remains nothing by mouth. She denies vomiting, nausea. She reports having small bowel movements this morning. Physical therapy has been reconsult that given recent right knee replacement, reports moderate pain OBJECTIVE PHYSICAL EXAMINATION: VITAL SIGNS: please see below General: NAD, comfortable HEENT: PERRLA, EOMI, sclerae clear Neck: supple, normal ROM, no JVD Respiratory: lungs CTAB, no wheeze, no rales, no crackles CVS: RRR, normal S1, S2, no murmurs Abdo: soft, no masses, no hepatosplenomegaly, BS+, no rebound tenderness Extremities: no edema, pulses 2+ MSK: Right knee replacement dressing clean, dry and intact. No increased erythema or edema. Neuro: no focal neuro deficits, moving all 4 extremities, CN2-12 intact. Strength 5/5 in all 4 extremities. No nystagmus. Psych: calm, cooperative, AAO x 3 LABORATORY DATA, IMAGING STUDIES, MICROBIOLOGY: Please see below. KUB 03/14/20: 1. Improving pattern of ileus with caliber decreased from yesterday's study which suggested a component of partial small bowel obstruction. Few air-fluid levels scattered with some smaller diameter small bowel loops. Stool and gas scattered throughout the colon. No change in the chest with some basilar atelectatic changes. KUB 03/13/20: 1. Small bowel obstructive pattern similar to yesterday's examination. The upper and mid abdominal small bowel loop caliber is unchanged. Some of the lower abdomen upper pelvis small bowel loops show less distension. No free air. 2. AICD pacer and nasogastric tube as described. There is left ventricular configuration of the heart with left atrial enlargement but no pulmonary edema o r definite effusion. There is patchy left base atelectasis now present abutting the diaphragm. CT of the abdomen and pelvis with IV contrast 03/12/2020: diffuse dilated loops of small bowel, apparent transition point in the right pelvis just right of the midline. Suspicious for recurrent bowel obstruction, possible adhesions. No bowel perforation. Dilated CBD unchanged from prior. DVT prophylaxis ordered?: Yes ASSESSMENT AND PLAN: Patient is a 69-year-old female with PMH of recent right knee replacement, DM, HTN, atrial fibrillation admitted for ileus vs. SBO. PROBLEMS: #Abdominal pain 2/2 to partial SBO vs. ileus: NGT removed by surgery. NPO for now, possible advance to [facility] this afternoon per Dr. Yoder. Small BM this morning. IVF. Toradol for pain, switch to prn. Plain film. #Total right knee replacement: pain control adequate. PT. Ortho f/u outpatient. #Diabetes mellitus: ISS q6h. FSBS. NPO. IVF. Hypoglycemic precautions. ASA/statin when taking PO. #Hypertension: resume home meds when taking PO. takes metoprolol XL 200 mg qam, 100 mg qhs. Quinapril 40 mg PO daily. #Atrial fibrillation: rate controlled. s/p watchman device, ablation. holding PO meds . #Hyperlipidemia: resume meds when taking PO. #DVT prophylaxis: lovenox DISPOSITION: Currently inpatient status. Plan is PT/OT, home when medically improved. Surgery following closely. VS, I&O, 24H, No Vital Signs/I&O Vital Signs Date Time Temp Pulse Resp B/P (MAP) Pulse Ox O2 Delivery O2 Flow Rate FiO2 03/15/20 06:00 98.9 90 17 182/97 (125) 97 Room Air I&O- Last 24 Hours up to 6 AM 03/15/20 06:00 Intake Total 1190 ml Output Total 450 ml Balance 740 ml Laboratory Data 24H LABS Laboratory Tests 2 03/14/20 14:58: Bedside Glucose (Misc Panel) 93 03/14/20 16:43: Bedside Glucose (Misc Panel) 99 03/14/20 20:35: Bedside Glucose (Misc Panel) 86 03/15/20 00:21: Bedside Glucose (Misc Panel) 91 03/15/20 06:10: Bedside Glucose (Misc Panel) 101 03/15/20 07:00: Immature Granulocyte % (Auto) 3.4H, Neutrophils (%) (Auto) 63.8, Lymphocytes (%) (Auto) 21.5L, Monocytes (%) (Auto) 9.8H, Eosinophils (%) (Auto) 1.2, Basophils (%) (Auto) 0.3, Neutrophils # (Auto) 5.7, Lymphocytes # (Auto) 1.9, Monocytes # (Auto) 0.9H, Eosinophils # (Auto) 0.1, Basophils # (Auto) 0.0, Nucleated Red Blood Cells % (auto) 0.0, Anion Gap 12, Glomerular Filtration Rate > 60.0, Calcium Level 8.0L, Magnesium Level 1.6L 03/15/20 11:30: Bedside Glucose (Misc Panel) 93 CBC/BMP Laboratory Tests 03/15/20 07:00 Microbiology Microbiology 03/12/20 Blood Culture - Preliminary, Resulted No Growth after 72 hours. All specime... 03/12/20 Blood Culture - Preliminary, Resulted No Growth after 72 hours. All specime... SURENDRA CRAIG MD Mar 15, 2020 13:49
[2020-03-15 14:00] VITALS: BP 171/108
--- NOTE | 2020-03-15 14:53 | REP ---
INDICATION: SBO. COMPARISON: March 14, 2020.. TECHNIQUE: Two supine views presented. FINDINGS: Several loops of air-filled mildly dilated small bowel persist in the upper abdomen on the right and the left consistent with ileus. There is air and stool in a nondistended colon. Psoas margins are symmetric. Flank stripes are intact. There are clips in right upper quadrant. There is a little less colonic stool in the right colon today. Otherwise, the bowel gas pattern is essentially unchanged. IMPRESSION: Scattered small bowel dilated loops persist in the upper abdomen similar to previous day's study. There is less stool in the colon today. <Electronically signed by David Paz > 03/15/20 1316
[2020-03-15] MEDS ORDERED: CAPTOpril 6.25 MG PER 1/2 TABLET SL ONE (15:00)
[2020-03-15 16:00] VITALS: BP 157/87
[2020-03-15] MEDS: traMADol 50 MG TAB PO PRN (20:47)
[2020-03-15 20:48] VITALS: BP 153/88
[2020-03-15] MEDS ORDERED: KETOROLAC 30 MG/ML 1ML VIAL IV PRN (22:00)
[2020-03-16] MEDS: traMADol 50 MG TAB PO PRN ×3 (04:10→17:51)
[2020-03-16 05:12] VITALS: BP 154/89
[2020-03-16 07:05] LABS: BASO # 0.1 10^3/uL (0.0-0.2); BASO % 0.5 % (0.0-1.0); EOS # 0.1 10^3/uL (0.0-0.5); EOS % 1.4 % (0.0-3.0); HEMATOCRIT 37.4 % (36.0-47.0); LYMPH # 2.1 10^3/uL (1.5-5.0); LYMPH % 20.1 % (24.0-44.0); MEAN CORPUSCULAR HEMOGLOBIN 30.2 pg (27.0-33.0); MEAN CORPUSCULAR HGB CONC 32.1 g/dl (32.0-36.5); MONO # 0.9 10^3/uL (0.0-0.8); MONO % 8.3 % (0.0-5.0); NEUTROPHILS % 67.8 % (36.0-66.0); PLATELET COUNT, AUTOMATED 303 10^3/uL (150-450); RED BLOOD COUNT 3.98 10^6/uL (4.00-5.40); WHITE BLOOD COUNT 10.4 10^3/uL (4.0-10.0)
[2020-03-16 07:36] LABS: BLOOD UREA NITROGEN 6 MG/DL (7-18); CALCIUM LEVEL 8.4 MG/DL (8.8-10.2); CARBON DIOXIDE LEVEL 16 MEQ/L (21-32); CHLORIDE LEVEL 110 MEQ/L (98-107); CREATININE FOR GFR 0.66 MG/DL (0.55-1.30); GLOMERULAR FILTRATION RATE > 60.0 (>45); GLUCOSE, FASTING 153 MG/DL (70-100); MAGNESIUM LEVEL 1.8 MG/DL (1.8-2.4); POTASSIUM SERUM 3.3 MEQ/L (3.5-5.1); SODIUM LEVEL 138 MEQ/L (136-145)
[2020-03-16] MEDS: DOCUSATE SODIUM 100 MG CAP PO SCH ×2 (07:57→20:05)
[2020-03-16] MEDS: ASCORBIC ACID 500 MG TAB PO SCH (07:58)
[2020-03-16] MEDS: ALVIMOPAN 12 MG CAPSULE (ENTEREG) PO SCH ×2 (07:58→20:06)
[2020-03-16] MEDS: HumaLOG INSULIN (NovoLOG) PER UNIT SC SCH ×4 (07:58→21:00)
[2020-03-16] MEDS: ENOXAPARIN 40MG/0.4ML SYRINGE (J1650 PER 10MG) SC SCH (07:58)
[2020-03-16 14:00] VITALS: BP 127/83
--- NOTE | 2020-03-16 20:15 | IPNPDOC ---
Date Seen The patient was seen on 03/16/20. Progress Note SUBJECTIVE: patient was seen and examined at bedside. Doing well, tolerated clear liquid diet. Advanced to regular diet by Dr. Yoder. States had numerous bowel movements. Seen ambulating on floor using RW. States abdominal pain has improved significantly. Doing well. Denies chest pain, shortness of breath, palpitations OBJECTIVE PHYSICAL EXAMINATION: VITAL SIGNS: please see below General: NAD, comfortable HEENT: PERRLA, EOMI, sclerae clear Neck: supple, normal ROM, no JVD Respiratory: lungs CTAB, no wheeze, no rales, no crackles CVS: RRR, normal S1, S2, no murmurs Abdo: soft, no masses, no hepatosplenomegaly, BS+, no rebound tenderness Extremities: no edema, pulses 2+ MSK: Right knee replacement dressing clean, dry and intact. No increased erythema or edema. Neuro: no focal neuro deficits, moving all 4 extremities, CN2-12 intact. Strength 5/5 in all 4 extremities. No nystagmus. Psych: calm, cooperative, AAO x 3 LABORATORY DATA, IMAGING STUDIES, MICROBIOLOGY: Please see below. KUB 03/15/20: Scattered small bowel dilated loops persist in the upper abdomen similar to previous day's study. There is less stool in the colon today. KUB 03/14/20: 1. Improving pattern of ileus with caliber decreased from yesterday's study which suggested a component of partial small bowel obstruction. Few air-fluid levels scattered with some smaller diameter small bowel loops. Stool and gas scattered throughout the colon. No change in the chest with some basilar atelectatic changes. KUB 03/13/20: 1. Small bowel obstructive pattern similar to yesterday's examination. The upper and mid abdominal small bowel loop caliber is unchanged. Some of the lower abdomen upper pelvis small bowel loops show less distension. No free air. 2. AICD pacer and nasogastric tube as described. There is left ventricular configuration of the heart with left atrial enlargement but no pulmonary edema or definite effusion. There is patchy left base atelectasis now present abutting the diaphragm. CT of the abdomen and pelvis with IV contrast 03/12/2020: diffuse dilated loops of small bowel, apparent transition point in the right pelvis just right of the midline. Suspicious for recurrent bowel obstruction, possible adhesions. No bowel perforation. Dilated CBD unchanged from prior. DVT prophylaxis ordered?: Yes ASSESSMENT AND PLAN: Patient is a 69-year-old female with PMH of recent right knee replacement, DM, HTN, atrial fibrillation admitted for ileus vs. SBO. Improving s/p decompression with NGT. Tolerating CLD, transitioned to regular by Dr. Yoder. PROBLEMS: #Abdominal pain 2/2 to partial SBO vs. ileus: NGT removed by surgery. Tolerated CLD. Advanced to regular diet by Dr. Yoder. Alvimopan. DC IVF. DC toradol. Plain film daily. #Total right knee replacement: pain control adequate. PT. Ortho f/u outpatient. #Diabetes mellitus: ISS q6h. FSBS. NPO. IVF. Hypoglycemic precautions. ASA/statin when taking PO. #Hypertension: resume home meds when taking PO. takes metoprolol XL 200 mg qam, 100 mg qhs. Quinapril 40 mg PO daily. #Atrial fibrillation: rate controlled. not on AC. s/p watchman device, ablation. resumed PO meds #Hyperlipidemia: lipitor resumed #DVT prophylaxis: lovenox DISPOSITION: Currently inpatient status. Cleared by PT. Has RW at home, seen ambulating in [facility]. Expect DC 03/17/20. VS, I&O, 24H, Fishbone Vital Signs/I&O Vital Signs Date Time Temp Pulse Resp B/P (MAP) Pulse Ox O2 Delivery O2 Flow Rate FiO2 03/16/20 18:21 18 03/16/20 14:00 98.2 98 127/83 (98) 96 Room Air I&O- Last 24 Hours up to 6 AM 03/16/20 06:00 Intake Total 3400 ml Output Total 400 ml Balance 3000 ml Laboratory Data 24H LABS Laboratory Tests 2 03/15/20 20:38: Bedside Glucose (Misc Panel) 95 03/16/20 06:35: Immature Granulocyte % (Auto) 1.9, Neutrophils (%) (Auto) 67.8H, Lymphocytes (%) (Auto) 20.1L, Monocytes (%) (Auto) 8.3H, Eosinophils (%) (Auto) 1.4, Basophils (%) (Auto) 0.5, Neutrophils # (Auto) 7.0, Lymphocytes # (Auto) 2.1, Monocytes # (Auto) 0.9H, Eosinophils # (Auto) 0.1, Basophils # (Auto) 0.1, Nucleated Red Blood Cells % (auto) 0.0, Anion Gap 12, Glomerular Filtration Rate > 60.0, Calcium Level 8.4L, Magnesium Level 1.8 03/16/20 11:16: Bedside Glucose (Misc Panel) 133H 03/16/20 16:21: Bedside Glucose (Misc Panel) 137H CBC/BMP Laboratory Tests 03/16/20 06:35 Microbiology Microbiology 03/12/20 Blood Culture - Preliminary, Resulted No Growth after 72 hours. All specime... 03/12/20 Blood Culture - Preliminary, Resulted No Growth after 72 hours. All specime... SURENDRA CRAIG MD Mar 16, 2020 20:15
[2020-03-16] MEDS ORDERED: ATORVASTATIN 20 MG TAB PO SCH (21:00)
[2020-03-16] MEDS ORDERED: METOPROLOL SUCC (TopROL XL) 100MG *XL* TAB PO SCH (21:00)
[2020-03-16 22:00] VITALS: BP 118/78
[2020-03-17] MEDS: traMADol 50 MG TAB PO PRN (00:10)
[2020-03-17 06:00] VITALS: BP 128/92
[2020-03-17 06:18] LABS: BASO % 0.4 % (0.0-1.0); EOS # 0.1 10^3/uL (0.0-0.5); HEMATOCRIT 39.5 % (36.0-47.0); HEMOGLOBIN 12.3 g/dl (12.0-15.5); LYMPH # 3.3 10^3/uL (1.5-5.0); LYMPH % 29.8 % (24.0-44.0); MEAN CORPUSCULAR HEMOGLOBIN 29.4 pg (27.0-33.0); MEAN CORPUSCULAR HGB CONC 31.1 g/dl (32.0-36.5); MEAN CORPUSCULAR VOLUME 94.3 fl (80.0-96.0); MONO # 1.1 10^3/uL (0.0-0.8); MONO % 9.7 % (0.0-5.0); NEUTROPHILS # 6.5 10^3/uL (1.5-8.5); NEUTROPHILS % 57.8 % (36.0-66.0); PLATELET COUNT, AUTOMATED 325 10^3/uL (150-450); RED BLOOD COUNT 4.19 10^6/uL (4.00-5.40); WHITE BLOOD COUNT 11.2 10^3/uL (4.0-10.0)
[2020-03-17 06:44] LABS: BLOOD UREA NITROGEN 8 MG/DL (7-18); CALCIUM LEVEL 8.5 MG/DL (8.8-10.2); CARBON DIOXIDE LEVEL 23 MEQ/L (21-32); CHLORIDE LEVEL 107 MEQ/L (98-107); CREATININE FOR GFR 0.68 MG/DL (0.55-1.30); GLOMERULAR FILTRATION RATE > 60.0 (>45); GLUCOSE, FASTING 165 MG/DL (70-100); MAGNESIUM LEVEL 1.7 MG/DL (1.8-2.4); POTASSIUM SERUM 3.4 MEQ/L (3.5-5.1); SODIUM LEVEL 143 MEQ/L (136-145)
[2020-03-17] MEDS: HumaLOG INSULIN (NovoLOG) PER UNIT SC SCH ×2 (08:01→12:24)
[2020-03-17] MEDS: DOCUSATE SODIUM 100 MG CAP PO SCH (08:02)
[2020-03-17] MEDS: ALVIMOPAN 12 MG CAPSULE (ENTEREG) PO SCH (08:02)
[2020-03-17 08:03] VITALS: BP 128/92
[2020-03-17] MEDS: ASCORBIC ACID 500 MG TAB PO SCH (08:03)
[2020-03-17] MEDS: ENOXAPARIN 40MG/0.4ML SYRINGE (J1650 PER 10MG) SC SCH (08:04)
--- NOTE | 2020-03-17 08:41 | DS.PDOC ---
Discharge Summary General Date of Admission Mar 12, 2020 at 03:25 Date of Discharge 03/17/20 Attending Physician: SURENDRA CRAIG MD Specialist/Consultants Involve: Yaw Yoder Jr Discharge Summary PROCEDURES PERFORMED DURING STAY: [None]. ADMITTING DIAGNOSES: 1. Small bowel obstruction. 2. Total R knee replacement 3. DM2 4. HTN 5. Chronic atrial fibrillation 6. Hyperlipidemia DISCHARGE DIAGNOSES: 1. Small bowel obstruction. 2. Total R knee replacement 3. DM2 4. HTN 5. Chronic atrial fibrillation 6. Hyperlipidemia COMPLICATIONS/CHIEF COMPLAINT: Small Bowel Obstruction. HISTORY OF PRESENT ILLNESS: Patient is a 69-year-old female who was recently at [facility] for a total right knee replacement who reported to the emergency department earlier today with a chief complaint of nausea and vomiting. Patient says that she felt constipated for the last few days and had her gave her an enema which did help her a little bit. Patient says that she's been vomiting for the last few hours prior to reporting to the emergency department. Patient says she vomited about 4 times and it was a clear to yellow liquid with no blood in it. Patient has a history of a bowel obstruction in the past. In the emergency department, a CT of the abdomen and pelvis was performed and did show a transition point and dilated small bowel loops. Hospitalists were consult at for admission due to small bowel obstruction. Patient is complaining of some mild abdominal pain and mild nausea at this time. HOSPITAL COURSE: #Abdominal pain 2/2 to partial SBO vs. ileus: NGT was placed, successful decompression. Tolerated CLD. Advanced to regular diet by Dr. Yoder. Alvimopan. Patient having BMs, tolerating regular diet with good appetite on day of DC. No abdo pain. #Total right knee replacement: pain control adequate. PT. Ortho f/u outpatient, her orthopedics service is in [place], [place]. #Diabetes mellitus: ISS q6h. FSBS. Hypoglycemic precautions. ASA/statin. #Hypertension: takes metoprolol XL 200 mg qam, 100 mg qhs. Quinapril 40 mg PO daily. BP well controlled. #Atrial fibrillation: rate controlled. not on AC. s/p watchman device, ablation. resumed PO meds #Hyperlipidemia: lipitor resumed #DVT prophylaxis: lovenox DISCHARGE MEDICATIONS: Please see below. ALLERGIES: Please see below. PHYSICAL EXAMINATION ON DISCHARGE: VITAL SIGNS: please see below General: NAD, comfortable, ambulating well with walker HEENT: PERRLA, EOMI, sclerae clear Neck: supple, normal ROM, no JVD Respiratory: lungs CTAB, no wheeze, no rales, no crackles CVS: RRR, normal S1, S2, no murmurs Abdo: soft, no masses, no hepatosplenomegaly, BS+, no rebound tenderness Extremities: no edema, pulses 2+ MSK: Right knee replacement dressing clean, dry and intact. No increased erythema or edema. Neuro: no focal neuro deficits, moving all 4 extremities, CN2-12 intact. Strength 5/5 in all 4 extremities. No nystagmus. Psych: calm, cooperative, AAO x 3 LABORATORY DATA: Please see below. IMAGING: Plan film (03/17/20) Scattered small bowel dilated loops persist in the upper abdomen similar to previous day's study. There is less stool in the colon today. CT abdo (03/12/20) 1. Diffuse dilated loops of small bowel. Apparent transition point in the pelvis just right of midline. Suspicious for recurrent bowel obstruction. Possible adhesions. 2. No bowel perforation. 3. Dilated CBD. Unchanged from prior. PROGNOSIS: Good ACTIVITY: [As tolerated]. DIET: CC DISCHARGE PLAN: DC home with RW, PCP, general surgery and orthopedics follow up DISPOSITION: . DISCHARGE INSTRUCTIONS: 1. Please follow-up with your primary care doctor within 3-5 days 2. Please follow-up with Dr. Yoder within 1-2 weeks 3. Please follow up with your orthopedic service within 1-2 weeks 4. Please taking medications as prescribed. 5. If he developed bleeding, chest pain, shortness of breath, seizures, nausea, fevers, or otherwise worsening of your symptoms, please call 911 or return to the nearest emergency room DISCHARGE CONDITION: [Stable]. TIME SPENT ON DISCHARGE: Greater than 30 minutes. Vital Signs/I&Os Vital Signs Date Time Temp Pulse Resp B/P (MAP) Pulse Ox O2 Delivery O2 Flow Rate FiO2 03/17/20 08:03 79 128/92 03/17/20 06:00 98.0 18 97 Room Air I&O- Last 24 Hours up to 6 AM 03/17/20 05:59 Intake Total 1600 ml Output Total 0 ml Balance 1600 ml Laboratory Data Labs 24H Laboratory Tests 2 03/16/20 11:16: Bedside Glucose (Misc Panel) 133H 03/16/20 16:21: Bedside Glucose (Misc Panel) 137H 03/16/20 20:00: Bedside Glucose (Misc Panel) 170H 03/17/20 05:13: Immature Granulocyte % (Auto) 1.3, Neutrophils (%) (Auto) 57.8, Lymphocytes (%) (Auto) 29.8, Monocytes (%) (Auto) 9.7H, Eosinophils (%) (Auto) 1.0, Basophils (%) (Auto) 0.4, Neutrophils # (Auto) 6.5, Lymphocytes # (Auto) 3.3, Monocytes # (Auto) 1.1H, Eosinophils # (Auto) 0.1, Basophils # (Auto) 0.0, Nucleated Red Blood Cells % (auto) 0.0, Anion Gap 13, Glomerular Filtration Rate > 60.0, Calcium Level 8.5L, Magnesium Level 1.7L CBC/BMP Laboratory Tests 03/17/20 05:13 FSBS Laboratory Tests Test 03/16/20 11:16 03/16/20 16:21 03/16/20 20:00 Range/Units Bedside Glucose (Misc Panel) 133 137 170 80-115 MG/DL Microbiology Microbiology 03/12/20 Blood Culture - Final, Complete NO GROWTH AFTER 5 DAYS 03/12/20 Blood Culture - Final, Complete NO GROWTH AFTER 5 DAYS Discharge Medications Scheduled Ascorbic Acid (Vitamin C) 500 Mg Cap, 500 MG PO DAILY, (Reported) Aspirin (Ecotrin) 81 Mg Tablet.dr, 81 MG PO QHS, (Reported) Atorvastatin Calcium (Atorvastatin Calcium) 20 Mg Tab, 20 MG PO QHS, (Reported) Celecoxib (Celecoxib) 200 Mg Capsule, 200 MG PO BID, (Reported) Cholecalciferol (Vitamin D3) (Vitamin D3) 1,000 Unit Tablet, 1,000 UNITS PO DAILY, (Reported) Cod Liver Oil (Cod Liver Oil) 1 Each Capsule, 1 CAP PO DAILY, (Reported) Docusate Sodium (Docusate Sodium) 100 Mg Capsule, 100 MG PO BID Glucosamine/D3/Boswellia Jessica (Osteo Bi-Flex Tablet) 1 Each Tablet, 1 TAB PO BID, (Reported) Metformin HCl (Metformin HCl) 1,000 Mg Tab, 1,000 MG PO BID, (Reported) Metoprolol Succinate (Metoprolol Succinate) 200 Mg Tab.er.24h, 200 MG PO QAM, (Reported) Metoprolol Succinate (Metoprolol Succinate) 200 Mg Tab.er.24h, 100 MG PO QHS, (Reported) Quinapril HCl (Quinapril HCl) 40 Mg Tab, 40 MG PO DAILY, (Reported) Senna (Senna Lax) 8.6 Mg Tablet, 2 TAB PO QHS Scheduled PRN Ondansetron HCl (Ondansetron HCl) 4 Mg Tablet, 4 MG PO TID PRN for NAUSEA, (Reported) Oxycodone HCl (Oxycodone HCl) 10 Mg Tablet, 10 MG PO Q4H PRN for prn, (Reported) Polyethylene Glycol 3350 (Polyethylene Glycol 3350) 17 Gm Powd.pack, 1 PKT PO DAILYPRN PRN for CONSTIPATION Tramadol HCl (Tramadol HCl) 50 Mg Tablet, 50 MG PO Q6H PRN for PAIN, (Reported) Allergies Coded Allergies: Sulfa (Sulfonamide Antibiotics) (Verified Allergy, Intermediate, rash, 01/15/19) SURENDRA CRAIG MD Mar 17, 2020 08:41
[2020-03-17] MEDS ORDERED: QUINAPRIL 20 MG TAB PO SCH (09:00)
[2020-03-17] MEDS ORDERED: POTASSIUM CHLORIDE 10 MEQ SR TABLET PO ONE (09:00)
[2020-03-17] MEDS ORDERED: METOPROLOL SUCC (TopROL XL) 100MG *XL* TAB PO SCH (09:00)
[2020-03-17] MEDS ORDERED: MAGNESIUM OXIDE 400 MG TAB (MAG-OX) PO SCH (09:00)
--- NOTE | 2020-03-17 11:06 | REP ---
INDICATION: SBO. COMPARISON: 03/15/2020, 03/14/2020, 03/13/2020. TECHNIQUE: AP supine FINDINGS: Right upper quadrant surgical clips are again seen. There is continued decrease in the volume of gas in diameter of the small bowel loops in the upper abdomen, all of which are now of normal appearing caliber. Some gas in the right colon but no dilated colon loops. Most of small bowel loops are fluid-filled. There are no abnormal calcifications over the renal fossa the or expected course of the ureters. IMPRESSION: 1. Further improvement in gas pattern with less gas in small bowel loops with no dilated loops now present in the upper abdomen. Most of the small bowel remains fluid filled but nondilated and one portion of the right colon with gas but no colonic dilatation. <Electronically signed by Jad Cervantes > 03/17/20 [id number]
--- NOTE | 2020-03-17 14:37 | CR ---
DATE OF CONSULTATION: 03/13/2020 CHIEF COMPLAINT: Bowel obstruction. BRIEF HISTORY OF PRESENT ILLNESS: Patient is a pleasant 69-year-old female who had a recent knee surgery. Came in with progressive abdominal distention, nausea, vomiting on March 12 and essentially she came in the night before, and then the next morning had four bowel movements, and her belly was less distended, so she was started on a diet, and essentially her diet was advanced during the day; however, she developed some progressive abdominal distention. After she was seen early in the morning, originally I had been given a consult to see her that morning, and then once the primary had found out that the patient was having bowel movements, they canceled the consult, but then she re- developed progressive abdominal distention and developed evidence of recurrence or persistence of her distention/bowel obstruction issue. In any case, an nasogastric (NG) tube was placed, she was placed nothing by mouth, and x-rays were obtained. In general, I reviewed those x-rays and felt that it was much more consistent with an ileus than a true bowel obstruction, but she states that overall she does not really have any crampy abdominal. She states that it was just a slow but progressive abdominal distention with nausea and vomiting that resulted. She was complaining of pain before the NG tube was placed, and that was mostly because of tension across her abdomen, not crampy abdominal pain. She still had some flatus and has been having that ongoing since her admission. MEDICAL HISTORY: Significant for: 1. History of diabetes mellitus. 2. Hyperlipidemia. 3. Atrial fibrillation. 4. Hypertension. 5. Right knee replacement. 6. Cardiac ablation. 7. Watchman device. 8. Automatic implantable cardioverter defibrillator (AICD). 9. Cholecystectomy. 10. Appendectomy. PHYSICAL EXAMINATION: Reveals an obese white female who looks stated age. HEENT: Unremarkable. NECK: Supple without adenopathy. LUNGS: Clear. HEART: Regular with a few irregular beats. ABDOMEN: Distended, mildly tympanitic in the epigastric area without significant guarding, rebound, or peritoneal signs, but definitely shows some distention. IMPRESSION AND PLAN: At this point, we will get some followup x-rays, but from my standpoint she is not ready to have her NG tube removed, and I would actually be very slow to discontinue her NG tube, and I would go slowly with things over the next several days. Even though she is still having some flatus, I anticipate this ileus will be something that she needs to slowly catch up to, but she has had some problems with constipation associated with her narcotics, and so we may want to start some stool softeners once we see that there is more bowel function and movement, but at this point we will keep her nothing by mouth, and it seems as though she is feeling better and her abdomen is less distended, and we will watch over overnight with this. ERIKA
--- NOTE | 2020-03-17 14:40 | IPN ---
DATE: 03/14/2020 Patient has had some significant improvement overnight; overall feels better. She is having less distention and we ordered a followup x-ray this morning, and essentially revealed that her NG tube needs to be pulled back a little bit but she still had some NG output. Her abdomen is still distended. She had some loops of bowel but much less than she had previously. She is still having some flatus and even some "small bowel movements" is what she is describing them as. She is having some continued pain and she would prefer not to have any narcotics, not any heavy duty narcotics such as morphine or the Percocet so I ordered some tramadol as well. She is having some discomfort in bed so I ordered a K-pad for her back but otherwise will see how we do with current treatment with this. I still discussed with her that I feel that we still need to go slowly with this. And when we look at her white count, it is still normal; she still has had some minimal bowel movements but her NG tube output has significantly dropped off overnight and I anticipate that she is starting to open up a little bit more. Thus, at this point we will see how she does overnight but I anticipate we will probably be getting the NG tube out tomorrow and slowly progressing her diet over the next 24-48 hours. ERIKA
--- NOTE | 2020-03-17 14:42 | IPN ---
DATE: 03/15/2020 SUBJECTIVE: Overall, the patient continues to make some good progress. Still having some flatus. Her abdomen feels softer and she feels normal at this point. Really has been tolerating her activity well and ended up walking around a little bit more and more bowel movements. OBJECTIVE: On physical exam her abdomen is very benign appearing, soft, nontender, and nondistended. ASSESSMENT AND PLAN: We will get out the nasogastric (NG) tube. I have started her on some stool softeners given her history of constipation. At this point, I kept her n.p.o. Essentially, later on in the day, I had seen her again and she seems to be doing well with the NG tube out and thus, we started her on a clear liquid diet and we will see how she does overnight with this; but I anticipate, we will be able to start her on a regular diet and advance her diet as tolerated at that time. Otherwise, no additional changes will be necessary at this point from a surgical standpoint. ERIKA
--- NOTE | 2020-03-17 14:45 | IPN ---
DATE: 03/16/2020 The patient overall has been doing well overnight. She tolerated a clear liquid diet and is getting hungry at this point. She still continues to have small bowel movements and flatus. Her abdomen is completely benign on exam. She has been afebrile. IMPRESSION/PLAN: Ileus has resolved at this time. We will start her on a regular diet and see how she does. Patient tolerated the regular diet today. From my standpoint, I will be signing off. If there are any surgical questions, I would be glad to answer them but at this point, re-consult me if necessary. ERIKA
== END 2020-03-17 13:55 | disposition home or self-care (01) | DRG 389 ==
LOC: M ED 22:56 → M ED INP 03-12 03:25 → ENRESERV 03-12 06:41 → M MS5PR 03-12 07:55
PROVIDERS: ADMIT Family Medicine; ATTEND Family Medicine
DX: K56.600 Partial intestinal obstruction, unspecified as to cause (principal); I48.20 Chronic atrial fibrillation, unspecified; E11.9 Type 2 diabetes mellitus without complications; I10 Essential (primary) hypertension; E78.5 Hyperlipidemia, unspecified; Z96.651 Presence of right artificial knee joint; Z79.82 Long term (current) use of aspirin; Z79.899 Other long term (current) drug therapy; Z88.2 Allergy status to sulfonamides

== ENCOUNTER 2020-03-30 07:19 | Outpatient (RCR) | payer MEDICARE ==
[~2020-03-30 07:19] MED LIST changes: +CELE1CAP9 PO; +CODCAP10 PO; +D31000TA2 PO; +DOCU100C16 PO; +GLUC1TAB58 PO; +ONDA-83 PO; +OXYC10TA12 PO; +PEG1POW PO; +SENN18TA PO; +TRAM50TA2 PO
== END 2020-04-04 | disposition home or self-care (01) ==
LOC: M PT 07:19
DX: Z96.651 Presence of right artificial knee joint (principal); Z47.1 Aftercare following joint replacement surgery

== ENCOUNTER 2020-05-04 07:00 | Outpatient (RCR) | payer MEDICARE | END 2020-05-05 | LOC: M PT 07:00 | PROVIDERS: ATTEND Physician Assistant | DX: Z47.1 Aftercare following joint replacement surgery (principal); Z96.651 Presence of right artificial knee joint ==

== ENCOUNTER 2020-05-31 07:00 | Outpatient (RCR) | payer MEDICARE ==
[~2020-05-31 07:00] MED LIST changes: -CODCAP10 PO; +CODCAP6 PO
== END 2020-06-05 ==
LOC: M PT 07:00
PROVIDERS: ATTEND Physician Assistant
DX: Z47.1 Aftercare following joint replacement surgery (principal); Z96.651 Presence of right artificial knee joint

== ENCOUNTER 2020-08-02 07:09 | Outpatient (RCR) | payer MEDICARE ==
[~2020-08-02 07:09] MED LIST changes: -PEG1POW PO; +POLY17PO18 PO
== END 2020-08-03 | disposition home or self-care (01) ==
LOC: M PT 07:09
PROVIDERS: ATTEND Internal Medicine
DX: Z47.1 Aftercare following joint replacement surgery (principal); Z96.651 Presence of right artificial knee joint

== ENCOUNTER 2020-08-25 07:00 | Outpatient (RCR) | payer MEDICARE | END 2020-09-02 | LOC: M PT 07:00 | PROVIDERS: ATTEND Physician Assistant | DX: Z47.1 Aftercare following joint replacement surgery (principal); Z96.651 Presence of right artificial knee joint ==

== ENCOUNTER → 2021-11-28 | Outpatient (CLI) | payer MEDICARE ==
[~2021-11-28] MED LIST changes: -D31000TA2 PO; -GLUCTAB6 PO; +GLUCTAB7 PO; +OMEP40CA4 PO; -OMEP40CA97 PO; +VITA100093 PO
== END ==
LOC: M WHC 06:59
PROVIDERS: ATTEND Internal Medicine
DX: Z12.31 Encounter for screening mammogram for malignant neoplasm of breast (principal)

== ENCOUNTER → 2023-02-25 | Outpatient (CLI) | payer MEDICARE ==
[~2023-02-25] MED LIST changes: +CELE0.09 PO; -CELE1CAP9 PO; +DICY-61 PO; -DICY10CA13 PO; +SENN-111 PO; -SENN18TA PO
== END ==
LOC: M WHC 07:19
PROVIDERS: ATTEND Internal Medicine
DX: Z12.31 Encounter for screening mammogram for malignant neoplasm of breast (principal)

== ENCOUNTER 2023-12-23 07:12 | Day surgery (SDC) | payer MEDICARE ==
[~2023-12-23] VITALS: Ht 167.6 cm; Wt 85.6 kg
[~2023-12-23 07:12] MED LIST changes: +BASA100I SQ; +CHLO125TA PO; +DULA4.5P SQ; +HYDR50TA70 PO; +JARD1TAB3 PO; +LR 1,000 ML IV SCH; +METO200T15 PO; -METO200T28 PO; +MIDAZOLAM INJ 2MG/2ML VIAL As Ordered ONE; +RAMI10CA64 PO; +ROSU40TA63 PO; +fentaNYL 100 MCG/2 ML INJECTION As Ordered ONE
[2023-12-23] MEDS: ATROPINE SULFATE 1% OPHTH SOLN 2ML BTL OD SCH (07:55)
[2023-12-23] MEDS: FLURBIPROFEN 0.03% OPHTH SOLN 2.5 ML OD SCH (07:56)
[2023-12-23] MEDS: TETRACAINE 0.5% OPHTH SOLN 4ML OD SCH (07:56)
[2023-12-23] MEDS: PHENYLEPHRINE 2.5% OPHTH SOL 2ML OD SCH (07:56)
[2023-12-23] MEDS: CEFUROXIME 1MG/0.1ML INTRACAMERAL INJ As Ordered ONE (08:42)
[2023-12-23] MEDS: LIDOCAINE 1% SDV 5ML VIAL As Ordered ONE (08:42)
[2023-12-23 09:02] VITALS: BP 102/63; TEMP 96.9; O2SAT 95
== END 2023-12-23 09:14 | disposition home or self-care (01) ==
LOC: M SDC 07:12
PROVIDERS: ATTEND Ophthalmology
DX: E11.36 Type 2 diabetes mellitus with diabetic cataract (principal); H25.11 Age-related nuclear cataract, right eye; I10 Essential (primary) hypertension; E78.00 Pure hypercholesterolemia, unspecified; G47.30 Sleep apnea, unspecified; Z79.899 Other long term (current) drug therapy; Z79.4 Long term (current) use of insulin; Z79.84 Long term (current) use of oral hypoglycemic drugs; Z79.85 Long-term (current) use of injectable non-insulin antidiabetic drugs; Z95.810 Presence of automatic (implantable) cardiac defibrillator; Z88.2 Allergy status to sulfonamides; Z90.49 Acquired absence of other specified parts of digestive tract
CPT/HCPCS: 66984; J0697; J2250; J3010; V2632

== ENCOUNTER 2024-01-27 09:18 | Day surgery (SDC) | payer MEDICARE ==
[~2024-01-27] VITALS: Ht 167.6 cm; Wt 83.6 kg
[~2024-01-27 09:18] MED LIST changes: -MIDAZOLAM INJ 2MG/2ML VIAL As Ordered ONE; -ROSU40TA63 PO; +ROSU40TA81 PO; -fentaNYL 100 MCG/2 ML INJECTION As Ordered ONE
[2024-01-27] MEDS ORDERED: fentaNYL 100 MCG/2 ML INJECTION As Ordered ONE (09:42)
[2024-01-27] MEDS ORDERED: MIDAZOLAM INJ 2MG/2ML VIAL As Ordered ONE (09:42)
[2024-01-27] MEDS: ATROPINE SULFATE 1% OPHTH SOLN 2ML BTL OS SCH (09:53)
[2024-01-27] MEDS: PHENYLEPHRINE 2.5% OPHTH SOL 2ML OS SCH (09:53)
[2024-01-27] MEDS: TETRACAINE 0.5% OPHTH SOLN 4ML OS SCH (09:54)
[2024-01-27] MEDS: FLURBIPROFEN 0.03% OPHTH SOLN 2.5 ML OS SCH (09:54)
[2024-01-27] MEDS: CEFUROXIME 1MG/0.1ML INTRACAMERAL INJ As Ordered ONE (11:00)
[2024-01-27] MEDS: LIDOCAINE 1% SDV 5ML VIAL As Ordered ONE (11:00)
[2024-01-27 11:20] VITALS: BP 133/76; TEMP 97.3; O2SAT 96
== END 2024-01-27 11:36 | disposition home or self-care (01) ==
LOC: M SDC 09:18
PROVIDERS: ATTEND Ophthalmology
DX: H25.12 Age-related nuclear cataract, left eye (principal); Z88.2 Allergy status to sulfonamides; I10 Essential (primary) hypertension; E78.5 Hyperlipidemia, unspecified; E11.9 Type 2 diabetes mellitus without complications; Z79.84 Long term (current) use of oral hypoglycemic drugs; Z79.899 Other long term (current) drug therapy; Z79.4 Long term (current) use of insulin; G47.33 Obstructive sleep apnea (adult) (pediatric); Z95.810 Presence of automatic (implantable) cardiac defibrillator
CPT/HCPCS: 66984; J0697; J2250; J3010; V2632

== ENCOUNTER 2024-12-08 16:39 | Inpatient (IN) | payer MEDICARE ==
[~2024-12-08] VITALS: Ht 167.6 cm; Wt 83.5 kg
[~2024-12-08 16:39] MED LIST changes: -LR 1,000 ML IV SCH; -SENN-111 PO; +SENN-165 PO
[2024-12-08 17:25] LABS: VENOUS BASE EXCESS -6.7 (-2.0-2.0); VENOUS HCO3 16.9 MMOL/L (23.0-27.0); VENOUS O2 SATURATION 86.9 % (60.0-80.0); VENOUS PARTIAL PRESSURE CO2 28.8 mmHg (38.0-50.0); VENOUS PARTIAL PRESSURE O2 55.4 mmHg (30.0-50.0); VENOUS PH 7.386 UNITS (7.330-7.430); VENOUS STANDARD HCO3 18.8 MMOL/L; VENOUS TOTAL CO2 17.8 MMOL/L (24.0-28.0)
[2024-12-08 17:28] LABS: BASO # 0.0 10^3/uL (0.0-0.2); BASO % 0.3 % (0.0-1.0); EOS # 0.0 10^3/uL (0.0-0.5); EOS % 0.3 % (0.0-3.0); LYMPH # 1.7 10^3/uL (1.5-5.0); LYMPH % 13.3 % (24.0-44.0); MONO # 0.6 10^3/uL (0.0-0.8); MONO % 4.4 % (2.0-8.0); NEUTROPHILS # 10.1 10^3/uL (1.5-8.5); NEUTROPHILS % 81.1 % (36.0-66.0); PLATELET COUNT, AUTOMATED 267 10^3/uL (150-450)
[2024-12-08] MEDS: IPRATROPIUM 0.5 MG/ALBUTEROL 2.5 MG INH SOL UD 3 ML NEB ONE (17:43)
[2024-12-08] MEDS: ALBUTEROL SULFATE 2.5 MG/0.5 ML INH CONCENTRATE NEB SOLN INH ONE (17:43)
[2024-12-08 17:51] LABS: INR 1.32
[2024-12-08 17:54] LABS: ALT/SGPT 32.0 U/L (7.0-40); AST/SGOT 29.0 U/L (<34); CALCIUM LEVEL 8.9 MG/DL (8.3-10.6); CARBON DIOXIDE LEVEL 21.0 MMOL/L (20-31); CHLORIDE LEVEL 107.0 MMOL/L (98-107); CK-MB VALUE MASS 1.2 NG/ML (<3.6); CREATININE FOR GFR 0.78 MG/DL (0.55-1.30); GLOMERULAR FILTRATION RATE 80.7 (>39); POTASSIUM SERUM 4.3 MMOL/L (3.5-5.1); SODIUM LEVEL 141.0 MMOL/L (136-145)
[2024-12-08 18:05] LABS: CPK CREATINE PHOSPHOKINASE 34.0 U/L (34-145); MB/CK RELATIVE INDEX 3.52 (< OR =4)
[2024-12-08 18:57] LABS: CK-MB VALUE MASS < 1.0 NG/ML (<3.6)
[2024-12-08 18:59] LABS: CPK CREATINE PHOSPHOKINASE 30 U/L (34-145)
[2024-12-08] MEDS ORDERED: ISOVUE-370 76% 100 ML VIAL As Ordered ONE (19:08)
[2024-12-08] MEDS ORDERED: ROSU20TA86 PO (21:14)
[2024-12-08] MEDS ORDERED: GLUC1TAB59 PO (21:14)
[2024-12-08] MEDS ORDERED: HOME MED LIST COMPLETE! XX SCH (21:15)
[2024-12-08] MEDS ORDERED: OMEP40CA5 PO (21:15)
[2024-12-08] MEDS: cefTRIAXone SOD 2 GM in DEXTROSE 5% (D5W) ADV/MINI-BAG 50 ML IV ONE (21:45)
[2024-12-08] MEDS ORDERED: MOM 30 ML SUSPENSION UDC PO PRN (21:50)
[2024-12-08] MEDS ORDERED: ACETAMINOPHEN 325 MG TAB PO PRN (21:50)
[2024-12-08] MEDS: DOCUSATE SODIUM 100 MG CAPSULE PO SCH (22:59)
[2024-12-08] MEDS: AZITHROMYCIN 250 MG TABLET PO SCH (22:59)
[2024-12-09] VITALS (15 sets, daily range): BP systolic 118–154; BP diastolic 63–73; TEMP 97–98; O2SAT 91–98
[2024-12-09] MEDS: ROSUVASTATIN 10 MG TAB PO SCH (01:21)
[2024-12-09] MEDS ORDERED: GLUCAGON INJ 1 MG VIAL SC PRN (02:10)
[2024-12-09] MEDS ORDERED: DEXTROSE 50% 50 ML SYRINGE IV PRN (02:10)
[2024-12-09] MEDS ORDERED: GLUCOSE 4 GM CHEW PO PRN (02:10)
[2024-12-09] MEDS: LEVALBUTEROL 1.25 MG 0.5ML CONCENTRATE NEB NEB SCH (02:36)
[2024-12-09 07:17] LABS: BASO # 0.0 10^3/uL (0.0-0.2); BASO % 0.1 % (0.0-1.0); EOS # 0.0 10^3/uL (0.0-0.5); EOS % 0.0 % (0.0-3.0); LYMPH # 1.7 10^3/uL (1.5-5.0); LYMPH % 16.3 % (24.0-44.0); MONO # 0.2 10^3/uL (0.0-0.8); MONO % 2.1 % (2.0-8.0); NEUTROPHILS # 8.4 10^3/uL (1.5-8.5); NEUTROPHILS % 80.9 % (36.0-66.0); PLATELET COUNT, AUTOMATED 245 10^3/uL (150-450)
[2024-12-09 07:49] LABS: ALT/SGPT 27 U/L (7.0-40); AST/SGOT 18 U/L (<34); CALCIUM LEVEL 9.6 MG/DL (8.3-10.6); CARBON DIOXIDE LEVEL 22 MMOL/L (20-31); CHLORIDE LEVEL 107 MMOL/L (98-107); CREATININE FOR GFR 0.69 MG/DL (0.55-1.30); GLOMERULAR FILTRATION RATE > 90.0 (>39); MAGNESIUM LEVEL 2.0 MG/DL (1.8-2.4); POTASSIUM SERUM 4.3 MMOL/L (3.5-5.1); SODIUM LEVEL 142 MMOL/L (136-145)
[2024-12-09] MEDS ORDERED: METOPROLOL SUCC. 100 MG *XL* TAB PO SCH (09:00)
[2024-12-09] MEDS: INSULIN LISPRO (NovoLOG) PER UNIT SC SCH ×2 (09:24→20:55)
[2024-12-09] MEDS: PANTOPRAZOLE 40MG VIAL IV SCH (09:24)
[2024-12-09] MEDS: FUROSEMIDE 40 MG/4 ML VIAL IV SCH (09:25)
[2024-12-09] MEDS: APIXABAN 5 MG TAB PO SCH (09:26)
[2024-12-09] MEDS: METOPROLOL SUCC. 100 MG *XL* TAB PO SCH (11:02)
[2024-12-09] MEDS: LanTUS (INSULIN GLARGINE INJ) 1 UNITS/0.01 ML SC SCH (14:12)
[2024-12-09] MEDS: HumuLIN R (REGULAR) INSULIN (NovoLIN R) **100 U/ML** PER UNIT IV STA ×2 (14:13→16:33)
[2024-12-09] MEDS: cefTRIAXone SOD 2 GM in DEXTROSE 5% (D5W) ADV/MINI-BAG 50 ML IV SCH (20:34)
[2024-12-10] VITALS (15 sets, daily range): BP systolic 110–127; BP diastolic 58–73; TEMP 96.6–98.5; O2SAT 87–100
[2024-12-10 04:46] LABS: BASO # 0.0 10^3/uL (0.0-0.2); BASO % 0.1 % (0.0-1.0); EOS # 0.0 10^3/uL (0.0-0.5); EOS % 0.0 % (0.0-3.0); LYMPH # 2.6 10^3/uL (1.5-5.0); LYMPH % 15.7 % (24.0-44.0); MONO # 1.1 10^3/uL (0.0-0.8); MONO % 6.8 % (2.0-8.0); NEUTROPHILS # 12.7 10^3/uL (1.5-8.5); NEUTROPHILS % 76.9 % (36.0-66.0); PLATELET COUNT, AUTOMATED 280 10^3/uL (150-450)
[2024-12-10 05:11] LABS: ESTIMATED AVERAGE GLUCOSE 137.0 MG/DL (60-110)
[2024-12-10 05:14] LABS: CALCIUM LEVEL 9.3 MG/DL (8.3-10.6); CARBON DIOXIDE LEVEL 24.0 MMOL/L (20-31); CHLORIDE LEVEL 107.0 MMOL/L (98-107); CREATININE FOR GFR 0.83 MG/DL (0.55-1.30); GLOMERULAR FILTRATION RATE 74.9 (>39); MAGNESIUM LEVEL 2.2 MG/DL (1.8-2.4); POTASSIUM SERUM 4.0 MMOL/L (3.5-5.1); SODIUM LEVEL 144.0 MMOL/L (136-145)
[2024-12-10] MEDS: predniSONE 20 MG TAB PO SCH (09:00)
[2024-12-10] MEDS: guaiFENesin ER TABLET 600 MG TAB PO SCH (09:00)
[2024-12-11] VITALS: O2SAT 99
[2024-12-11 04:00] VITALS: BP 128/65; TEMP 96.7; O2SAT 97; O2SAT 99
[2024-12-11 07:01] LABS: CALCIUM LEVEL 8.8 MG/DL (8.3-10.6); CARBON DIOXIDE LEVEL 27.0 MMOL/L (20-31); CHLORIDE LEVEL 106.0 MMOL/L (98-107); CREATININE FOR GFR 0.76 MG/DL (0.55-1.30); GLOMERULAR FILTRATION RATE 83.2 (>39); MAGNESIUM LEVEL 2.1 MG/DL (1.8-2.4); POTASSIUM SERUM 3.7 MMOL/L (3.5-5.1); SODIUM LEVEL 143.0 MMOL/L (136-145)
[2024-12-11 07:39] LABS: BASO # 0.0 10^3/uL (0.0-0.2); BASO % 0.3 % (0.0-1.0); EOS # 0.1 10^3/uL (0.0-0.5); EOS % 0.9 % (0.0-3.0); LYMPH # 4.1 10^3/uL (1.5-5.0); LYMPH % 39.1 % (24.0-44.0); MONO # 0.9 10^3/uL (0.0-0.8); MONO % 8.3 % (2.0-8.0); NEUTROPHILS # 5.4 10^3/uL (1.5-8.5); NEUTROPHILS % 51.1 % (36.0-66.0); PLATELET COUNT, AUTOMATED 260 10^3/uL (150-450)
[2024-12-11 08:09] VITALS: BP 127/68; TEMP 96.8; O2SAT 100
[2024-12-11 08:27] VITALS: BP 127/68
[2024-12-11] MEDS ORDERED: [UNRECOGNIZED DRUG - OTHER] PO (11:02)
[2024-12-11] MEDS ORDERED: LEVO1TAB40 PO (11:02)
[2024-12-11] MEDS ORDERED: ROBI1LIQ PO (11:02)
[2024-12-11] MEDS ORDERED: HYDR50TA70 PO (11:02)
[2024-12-11] MEDS: cefTRIAXone SOD 2 GM in DEXTROSE 5% (D5W) ADV/MINI-BAG 50 ML IV ONE (12:02)
[2024-12-12 04:47] LABS: URINE STREP PNEUMONIAE ANTIGEN Not Detected (Not Detected)
[2024-12-14 16:33] LABS: MYCOPLASMA PNEUMONIAE IGG <= 0.90 (<=0.90); MYCOPLASMA PNEUMONIAE IGM 202.0 U/mL (<770)
== END 2024-12-11 14:30 | disposition home or self-care (01) | DRG 193 ==
LOC: M ED 16:39 → M ED INP 22:51 → M PCU 12-09 01:40
PROVIDERS: ADMIT Student in an Organized Health Care Education/Training Program; ATTEND Student in an Organized Health Care Education/Training Program
DX: J18.9 Pneumonia, unspecified organism (principal); J96.01 Acute respiratory failure with hypoxia; I50.33 Acute on chronic diastolic (congestive) heart failure; J90 Pleural effusion, not elsewhere classified; I42.2 Other hypertrophic cardiomyopathy; I24.89 Other forms of acute ischemic heart disease; E11.65 Type 2 diabetes mellitus with hyperglycemia; K21.9 Gastro-esophageal reflux disease without esophagitis; E78.5 Hyperlipidemia, unspecified; I11.0 Hypertensive heart disease with heart failure; I48.91 Unspecified atrial fibrillation; Z95.810 Presence of automatic (implantable) cardiac defibrillator; G47.00 Insomnia, unspecified; Z90.49 Acquired absence of other specified parts of digestive tract; Z96.651 Presence of right artificial knee joint; Z79.01 Long term (current) use of anticoagulants; Z79.84 Long term (current) use of oral hypoglycemic drugs; Z79.4 Long term (current) use of insulin; Z79.899 Other long term (current) drug therapy; Z88.2 Allergy status to sulfonamides

== ENCOUNTER → 2025-03-09 | Outpatient (CLI) | payer MEDICARE ==
[~2025-03-09] MED LIST changes: +GLUC1TAB59 PO; +LEVO1TAB40 PO; +OMEP40CA5 PO; +ROBI1LIQ PO; +ROSU20TA86 PO; +[UNRECOGNIZED DRUG - OTHER] PO
== END ==
LOC: M WHC 08:34
PROVIDERS: ATTEND Internal Medicine
DX: Z12.31 Encounter for screening mammogram for malignant neoplasm of breast (principal)